=== PATIENT | female | born 1955 | race Caucasian/White ===

== ENCOUNTER 2020-01-24 16:04 | Emergency (ER) | payer MEDICARE, OTHER ==
[~2020-01-24] VITALS: Ht 165.1 cm; Wt 97.9 kg
--- NOTE | 2020-01-24 16:27 | ED Dyspnea ---
General Stated Complaint: ASTHMA History of Present Illness Date Seen by Provider: Jan 24, 2020 Time Seen by Provider: 16:27 Initial Comments 64-year-old female reports that she is "having an asthma attack" patient reports his been going on for a couple weeks. Patient was seen last by her primary care provider and started on a three-day course of steroids along with albuterol. She reports she feels like she can't get any air. She reports that the steroids and help so her primary care provider started her on another dose of steroids couple days ago and is still has not had any improvement. She reports that she "just isn't moving any air" she denies any increased cough, fevers or chills. She has some mild mid sternal chest pain that radiates to her back. Allergies and Home Medications Allergies Coded Allergies: No Known Drug Allergies (Unverified , 01/24/20) Home Medications Azithromycin 250 Mg Tablet, 250 MG PO UD TAKE 2 TABLETS ON DAY ONE THEN TAKE 1 TABLET DAILY FOR FOUR MORE DAYS Prescribed by: SHERMAN CORADO on 01/24/20 7269 Patient Home Medication List Home Medication List Reviewed: Yes Review of Systems Review of Systems Constitutional: No chills, No fever EENTM: see HPI Respiratory: short of breath, wheezing Cardiovascular: No chest pain, No palpitations Gastrointestinal: No diarrhea, No nausea, No vomiting Genitourinary: no symptoms reported Musculoskeletal: no symptoms reported Skin: no symptoms reported Psychiatric/Neurological: No Symptoms Reported Past Habxayg-Ruywrn-Ksjogy Hx Past Med/Social Hx: Reviewed Nursing Past Med/Soc Hx Patient Social History Recent Foreign Travel: No (N) Contact w/Someone Who Travel: No Physical Exam Vital Signs Vital Signs - First Documented 01/24/20 16:17 Temp 36.9 Pulse 99 Resp 20 B/P (MAP) 104/70 (81) Pulse Ox 98 O2 Delivery Room Air Capillary Refill : Height, Weight, BMI Height: '" Weight: lbs. oz. kg; BMI Method: General Appearance: No Apparent Distress Neck: Non Tender, Supple Respiratory: No Accessory Muscle Use, Decreased Breath Sounds (mild diffuse ); No Respiratory Distress, No Wheezing Cardiovascular: Regular Rate, Rhythm, No Edema Gastrointestinal: Non Tender, Soft Extremity: Normal Capillary Refill Neurologic/Psychiatric: Normal Mood/Affect Progress/Results/Core Measures Results/Orders Lab Results Laboratory Tests Test 01/24/20 17:04 Range/Units White Blood Count 15.1 H 4.3-11.0 10^3/uL Red Blood Count 3.76 L 4.35-5.85 10^6/uL Hemoglobin 10.7 L 11.5-16.0 G/DL Hematocrit 33 L 35-52 % Mean Corpuscular Volume 88 80-99 FL Mean Corpuscular Hemoglobin 29 25-34 PG Mean Corpuscular Hemoglobin Concent 32 32-36 G/DL Red Cell Distribution Width 13.8 10.0-14.5 % Platelet Count 452 H 130-400 10^3/uL Mean Platelet Volume 8.4 7.4-10.4 FL Neutrophils (%) (Auto) 91 H 42-75 % Lymphocytes (%) (Auto) 8 L 12-44 % Monocytes (%) (Auto) 2 0-12 % Eosinophils (%) (Auto) 0 0-10 % Basophils (%) (Auto) 0 0-10 % Neutrophils # (Auto) 13.8 H 1.8-7.8 X 10^3 Lymphocytes # (Auto) 1.1 1.0-4.0 X 10^3 Monocytes # (Auto) 0.2 0.0-1.0 X 10^3 Eosinophils # (Auto) 0.0 0.0-0.3 10^3/uL Basophils # (Auto) 0.0 0.0-0.1 10^3/uL Neutrophils % (Manual) 93 % Lymphocytes % (Manual) 7 % Hypersegmented Neutrophils SLIGHT Blood Morphology Comment NORMAL D-Dimer 0.46 0.00-0.49 UG/ML Sodium Level 135 135-145 MMOL/L Potassium Level 5.2 H 3.6-5.0 MMOL/L Chloride Level 103 98-107 MMOL/L Carbon Dioxide Level 18 L 21-32 MMOL/L Anion Gap 14 5-14 MMOL/L Blood Urea Nitrogen 27 H 7-18 MG/DL Creatinine 1.39 H 0.60-1.30 MG/DL Estimat Glomerular Filtration Rate 38 BUN/Creatinine Ratio 19 Glucose Level 298 H 70-105 MG/DL Calcium Level 9.5 8.5-10.1 MG/DL Magnesium Level 1.7 1.6-2.4 MG/DL Troponin I < 0.028 <0.028 NG/ML C-Reactive Protein High Sensitivity 1.01 H 0.00-0.50 MG/DL B-Type Natriuretic Peptide 16.2 <100.0 PG/ML My Orders Orders - SHERMAN CORADO DO Chest Pa/Lat (2 View) (01/24/20 16:33) Basic Metabolic Panel (01/24/20 16:33) BNP (01/24/20 16:33) Cbc With Automated Diff (01/24/20 16:33) Hs C Reactive Protein (01/24/20 16:33) Fibrin Degradation Products (01/24/20 16:33) Magnesium (01/24/20 16:33) Troponin I (01/24/20 16:33) Ed Iv/Invasive Line Start (01/24/20 16:33) Ekg Tracing (01/24/20 16:33) Monitor-Rhythm Ecg Trace Only (01/24/20 16:33) Manual Differential (01/24/20 17:04) Vital Signs/I&O 01/24/20 01/24/20 16:17 18:05 Temp 36.9 36.9 Pulse 99 86 Resp 20 15 B/P (MAP) 104/70 (81) 110/72 (81) Pulse Ox 98 98 O2 Delivery Room Air Progress Progress Note : Time: 17:44 Progress Note Patient with an elevation in white count and what appears be an early pneumonia in the right lower lobe. I will start her on azithromycin. She will be discharged home and should follow with her primary care doctor and [facility]. Patient is stable upon discharge Initial ECG Impression Date: Jan 24, 2020 Initial ECG Impression Time: 17:05 Initial ECG Rate: 84 Initial ECG Rhythm: Normal Sinus Initial ECG Impression: Nonspecific Changes Diagnostic Imaging Diagonstic Imaging: Xray Plain Films/CT/US/NM/MRI: chest Comments [facility]. [place], [place] NAME: ELIZA FRANCO MED REC#: [id number] PT STATUS: REG ER : 1955 PHYSICIAN: SHERMAN CORADO DO ADMIT DATE: 01/24/20/ER Draft Date of Exam:01/24/20 CHEST PA/LAT (2 VIEW) CLINICAL INDICATION: Patient with shortness of air x10 days. No history of cancer. EXAM: Chest x-ray PA and lateral views. COMPARISONS: None. FINDINGS: There are mild curvilinear and amorphous opacities in left lung base which may represent atelectasis, but superimposed infiltrate cannot be completely excluded. There is a suspected minimal right basilar atelectasis. Otherwise, lungs are clear. There is no pleural effusion or pneumothorax. Pulmonary vasculature and cardiac silhouette are within normal limits. Thoracic spine shows small degenerative spurs. IMPRESSION: 1: There are mild airspace opacities in left lung base which may represent atelectasis, but superimposed infiltrate/infectious process cannot be completely excluded. 2: Suspected mild right basilar atelectasis. Reviewed: Reviewed by Me, Reviewed/Discussed Departure Impression Primary Impression: Pneumonia Qualified Codes: J18.9 - Pneumonia, unspecified organism Disposition: HOME, SELF-CARE Condition: Stable Departure-Patient Inst. Referrals: SAMEERA COSBY MD (PCP/Family) Primary Care Physician Patient Instructions: Pneumonia, Adult (DC) Scripts Azithromycin (Azithromycin) 250 Mg Tablet 250 MG PO UD, #6 TAB TAKE 2 TABLETS ON DAY ONE THEN TAKE 1 TABLET DAILY FOR FOUR MORE DAYS Prov: SHERMAN CORADO DO 01/24/20 SHERMAN CORADO DO Jan 24, 2020 16:27
[2020-01-24 17:09] LABS: BASOPHILS % (AUTO) 0 % (0-10); EOSINOPHILS % (AUTO) 0 % (0-10); HEMATOCRIT 33 % (35-52); HEMOGLOBIN 10.7 G/DL (11.5-16.0); LYMPHOCYTES # (AUTO) 1.1 X 10^3 (1.0-4.0); LYMPHOCYTES % (AUTO) 8 % (12-44); MEAN CORPUSCULAR HEMOGLOBIN 29 PG (25-34); MEAN CORPUSCULAR HGB CONC 32 G/DL (32-36); MEAN CORPUSCULAR VOLUME 88 FL (80-99); MEAN PLATELET VOLUME 8.4 FL (7.4-10.4); MONOCYTES # (AUTO) 0.2 X 10^3 (0.0-1.0); MONOCYTES % (AUTO) 2 % (0-12); NEUTROPHILS # (AUTO) 13.8 X 10^3 (1.8-7.8); NEUTROPHILS % (AUTO) 91 % (42-75); PLATELET COUNT 452 10^3/uL (130-400); RED CELL DISTRIBUTION WIDTH 13.8 % (10.0-14.5); WHITE BLOOD COUNT 15.1 10^3/uL (4.3-11.0)
--- NOTE | 2020-01-24 17:13 | Diagnostic Imaging Report ---
CLINICAL INDICATION: Patient with shortness of air x10 days. No history of cancer. EXAM: Chest x-ray PA and lateral views. COMPARISONS: None. FINDINGS: There are mild curvilinear and amorphous opacities in left lung base which may represent atelectasis, but superimposed infiltrate cannot be completely excluded. There is a suspected minimal right basilar atelectasis. Otherwise, lungs are clear. There is no pleural effusion or pneumothorax. Pulmonary vasculature and cardiac silhouette are within normal limits. Thoracic spine shows small degenerative spurs. IMPRESSION: 1: There are mild airspace opacities in left lung base which may represent atelectasis, but superimposed infiltrate/infectious process cannot be completely excluded. 2: Suspected mild right basilar atelectasis. Dictated by: Dictated on workstation # [id number]
[2020-01-24 17:35] LABS: BUN/CREATININE RATIO 19; CALCIUM 9.5 MG/DL (8.5-10.1); CARBON DIOXIDE 18 MMOL/L (21-32); CHLORIDE 103 MMOL/L (98-107); CREATININE SERUM 1.39 MG/DL (0.60-1.30); GFR ESTIMATED 38; GLUCOSE 298 MG/DL (70-105); MAGNESIUM 1.7 MG/DL (1.6-2.4); POTASSIUM 5.2 MMOL/L (3.6-5.0); SODIUM 135 MMOL/L (135-145)
[2020-01-24] MEDS ORDERED: AZIT250T12 PO (17:42)
[2020-01-24 17:56] LABS: HYPERSEGMENTED NEUT SLIGHT; LYMPHOCYTES % (MANUAL) 7 %; NEUTROPHILS % (MANUAL) 93 %
[2020-01-24 17:57] LABS: RBC MORPH NORMAL
[2020-01-24 18:05] VITALS: BP 110/72
== END 2020-01-24 18:05 | disposition home or self-care (01) ==
LOC: ER 16:06
DX: J18.9 Pneumonia, unspecified organism (principal)
CPT/HCPCS: 36415; 71046; 80048; 83735; 83880; 84484; 85007; 85027; 85379; 86141; 93041

== ENCOUNTER 2020-12-29 16:14 | Inpatient (IN) | payer MEDICARE ==
[~2020-12-29] VITALS: Ht 165.1 cm; Wt 95.5 kg
[~2020-12-29 16:14] MED LIST: AZIT250T12 PO
[2020-12-29] MEDS ORDERED: ACETAMINOPHEN 650 MG SUPP (TYLENOL) PR PRN ×2 (18:45→21:45)
[2020-12-29] MEDS ORDERED: ACETAMINOPHEN 325 MG TABLET PO PRN (18:45)
[2020-12-29] MEDS ORDERED: ONDANSETRON 4 MG/5 ML ORAL SOLN (ZOFRAN) 5 ML PO PRN ×2 (18:45→21:45)
--- NOTE | 2020-12-29 19:00 | History & Physical ---
History of Present Illness HPI/Chief Complaint CC: COVID PNA with acute hypoxic respiratory failure with NATHANIEL HPI: This is a 65yoWF clinic patient of Dr Morton who has a h/o asthma without smoking history who presented to [facility] ER with wheezing and dyspnea from Dr Morton office. He called me and after he gave me update I made the decision to have her report to [facility] ER with the intention of admitted her to [facility] as I have done in the past but she was found to be COVID + and unvaccinated and NATHANIEL creatinine 3.4 and severely dehydrated. Due to severity of illness I made the decision to move her to [facility] ICU. She appears to be very dehydrated and was given 2 liters of fluid NS in ER and dosed with 1 gram of IV Cefepime. Peraza catheter will be placed. I put in all meds and ICU orders. Decadron given in ER. Patient has a past medical history of Vpzobnb-Tvykx-Uzwxn disorder with bilateral leg braces worn, diabetes mellitus on insulin, hypothyroidism, chronic insomnia, GERD, neuropathy and hypertension, migraines. Exam Limitations: clinical condition Date Seen 12/29/20 Time Seen by a Provider: 18:30 Attending Physician Dali Kuo Pankaj K MD Referring Physician Date of Admission Home Medications & Allergies Home Medications Reviewed patient Home Medication Reconciliation performed by pharmacy medication reconciliations ophthalmic medical technician and/or nursing. Patients Allergies have been reviewed. Allergies Allergies Coded Allergies No Known Drug Allergies (Unverified01/24/20) Past Mwybxss-Cczmka-Hgpsip Hx Past Med/Social Hx: Reviewed Nursing Past Med/Soc Hx, Reviewed and Corrections made Patient Social History Marrital Status: Employed/Student: unemployed Alcohol Use: Denies Use Smoking Status: Never a Smoker Recent Hopitalizations: No Immunizations Up To Date Tetanus Booster (TDap): Unknown Pediatric: Yes Seasonal Allergies Seasonal Allergies: Yes Past Medical History Surgeries: Gallbladder, Orthopedic, Tubal Ligation Cardiac: Hypertension Neurological: Headaches /Migraines Izcibtz-Xouxn-Mnvvg disorder Tubal Ligation Gastrointestinal: Gastroesophageal Reflux Endocrine: Diabetes, Non-Insulin dep History of Blood Disorders: No Review of Systems Constitutional: see HPI, dizziness, fever, weakness Respiratory: dyspnea on exertion, short of breath, wheezing Psychiatric/Neurological: Other (Confusion) Physical Exam Physical Exam Vital Signs Capillary Refill : Height, Weight, BMI Height: '" Weight: lbs. oz. kg; 35.00 BMI Method: General Appearance: WD/WN, Chronically ill, Moderate Distress, Other (Blair, ashen, profoundly dehydrated) Eyes: Bilateral Eye Normal Inspection, Bilateral Eye PERRL HEENT: PERRL/EOMI, Pharynx Normal, Other (Severe dry mucous membranes) Neck: Full Range of Motion, Normal Inspection, Non Tender, Supple, Carotid Bruit Respiratory: Chest Non Tender, No Respiratory Distress, Accessory Muscle Use, Crackles, Decreased Breath Sounds, Wheezing Cardiovascular: No Edema, No Gallop, No JVD, No Murmur, Normal Peripheral Pulses, Tachycardia Gastrointestinal: Normal Bowel Sounds, No Organomegaly, No Pulsatile Mass, Non Tender, Soft Back: Normal Inspection, No CVA Tenderness, No Vertebral Tenderness Extremity: Normal Capillary Refill, Normal Inspection, Normal Range of Motion, Non Tender, No Calf Tenderness, No Pedal Edema Neurologic/Psychiatric: Alert, Oriented x3, No Motor/Sensory Deficits, Normal Mood/Affect, Depressed Affect, Disoriented Skin: Normal Color, Warm/Dry Lymphatic: No Adenopathy Results Results/Procedures Labs Patient resulted labs reviewed. Assessment/Plan Admission Diagnosis Assessment: COVID-19 pneumonia Acute hypoxic respiratory failure Profound dehydration Acute kidney injury Edawqzw-Lezyv-Bocos disorder Diabetes mellitus insulin-dependent Hypothyroidism eczema Chronic insomnia Severe asthma with frequent hospital stays GERD Neuropathy Hypertension Migraines Plan: Aggressive IV fluid but prevent volume overload Decadron Cefepime Heparin for DVT prophylaxis Profoundly ill Admission Status: Inpatient Order (span 2 midnights) Reason for Inpatient Admission: covid 19 Diagnosis/Problems Diagnosis/Problems (1) SARS pneumonia (2) Acute hypoxemic respiratory failure (3) NATHANIEL (acute kidney injury) (4) Asthma (5) Dehydration (6) Syucrgw-Cpmln-Eomos disease (7) Diabetes (8) Hypertension (9) Migraine (10) Neuropathy (11) Hypothyroidism (12) GERD (gastroesophageal reflux disease) DALI KUO DO Dec 29, 2020 18:59
[2020-12-29] MEDS: NS IV 1000 ML 1,000 ML IV SCH (20:26)
[2020-12-29 20:31] LABS: BASOPHILS % (AUTO) 0 % (0-10); EOSINOPHILS % (AUTO) 0 % (0-10); HEMATOCRIT 28 % (35-52); HEMOGLOBIN 9.1 g/dL (11.5-16.0); LYMPHOCYTES # (AUTO) 0.9 10^3/uL (1.0-4.0); LYMPHOCYTES % (AUTO) 9 % (12-44); MEAN CORPUSCULAR HEMOGLOBIN 29 pg (25-34); MEAN CORPUSCULAR HGB CONC 32 g/dL (32-36); MEAN CORPUSCULAR VOLUME 89 fL (80-99); MEAN PLATELET VOLUME 8.9 fL (9.0-12.2); MONOCYTES # (AUTO) 0.4 10^3/uL (0.0-1.0); MONOCYTES % (AUTO) 4 % (0-12); NEUTROPHILS # (AUTO) 8.7 10^3/uL (1.8-7.8); NEUTROPHILS % (AUTO) 87 % (42-75); PLATELET COUNT 259 10^3/uL (130-400); WHITE BLOOD COUNT 10.1 10^3/uL (4.3-11.0)
[2020-12-29 20:44] LABS: ABG OXYGEN SATURATION 79 % (94-100); ABG PCO2 37 MMHG (35-45); ABG PO2 58 MMHG (79-93); ABG TCO2 17.8 MMOL/L (21.0-31.0)
[2020-12-29 20:45] LABS: ALLENS TEST YES-POS; INSPIRED O2 3L; PATIENT TEMP 39.3; VENTILATOR NO
[2020-12-29 20:47] LABS: ALBUMIN 3.5 GM/DL (3.2-4.5); POTASSIUM 5.1 MMOL/L (3.6-5.0)
[2020-12-29 20:48] LABS: CALCIUM 7.3 MG/DL (8.5-10.1)
[2020-12-29 20:49] LABS: BAND NEUTROPHILS 15 %; BASOPHILS % (MANUAL) 0 %; EOSINOPHILS % (MANUAL) 0 %; LYMPHOCYTES % (MANUAL) 4 %; MONOCYTES % (MANUAL) 3 %; NEUTROPHILS % (MANUAL) 78 %; ROULEAUX SLIGHT
[2020-12-29 20:50] LABS: TOTAL PROTEIN 6.2 GM/DL (6.4-8.2)
[2020-12-29 20:51] LABS: BILIRUBIN,TOTAL 0.2 MG/DL (0.1-1.0)
[2020-12-29 20:53] LABS: CREATININE SERUM 2.87 MG/DL (0.60-1.30)
--- NOTE | 2020-12-29 21:23 | Diagnostic Imaging Report ---
EXAMINATION: Chest radiograph, portable AP view. DATE: 12/29/2020 8:32 PM INDICATION: 65-year-old female, shortness of breath. History of Covid 19 infection and pneumonia. COMPARISON: January 24, 2020. FINDINGS: There is a right internal jugular central venous line with tip at the level of the cavoatrial junction. Stable overall appearance of the cardiomediastinal silhouette. There is no identified pneumothorax. There is no large pleural effusion. There is patchy multifocal airspace consolidation in the right lung. IMPRESSION: 1. Patchy multifocal airspace consolidation in the right lung which may relate to provided history of Covid 19 infection and multifocal pneumonia/pneumonitis although is not specific. 2. Right internal jugular central venous line tip is at the level of the cavoatrial junction. Dictated by: Dictated on workstation # [id number]
[2020-12-29] MEDS ORDERED: CALCIUM CARBONATE 500 MG (TUMS) TAB.CHEW PO PRN (21:45)
[2020-12-29] MEDS ORDERED: guaiFENesin/CODEINE (ROBITUSSIN AC) 10ML UDC PO PRN (21:45)
[2020-12-29] MEDS ORDERED: MELATONIN 3 MG TABLET PO PRN (21:45)
[2020-12-29] MEDS ORDERED: DOCUSATE SODIUM 100 MG (COLACE) CAP PO PRN (21:45)
[2020-12-29] MEDS ORDERED: ONDANSETRON 4 MG/2 ML (SDV) Z0FRAN IVP PRN (21:45)
[2020-12-29] MEDS ORDERED: HYDROcodone/APAP 5 MG/325 MG (LORTAB) TAB PO PRN (21:45)
[2020-12-29] MEDS ORDERED: HYDROmorphone 2 MG/ML VIAL (DILAUDID) IVP PRN (21:45)
[2020-12-29] MEDS ORDERED: LOPERAMIDE 2 MG (IMODIUM) TABLET PO PRN (21:45)
[2020-12-29] MEDS ORDERED: ALPRAZolam 0.25 MG (XANAX) TAB PO PRN (21:45)
[2020-12-29] MEDS ORDERED: ONDANSETRON 4 MG/2 ML (SDV) Z0FRAN IV PRN (21:45)
[2020-12-29] MEDS ORDERED: diphenhydrAMINE 25 MG TAB (BENADRYL) PO PRN (21:45)
[2020-12-29] MEDS: CEFEPIME INJECTION 1,000 MG in WATER (STERILE) FOR INJECTION 10 ML IV SCH (22:35)
--- NOTE | 2020-12-29 23:08 | Tele-ICU Consult ---
History of Present Illness History of Present Illness Date Seen by Provider: Dec 29, 2020 Time Seen by Provider: 23:00 Date of Admission 65 ear old admitted with COVID19 infection and NATHANIEL History of Present Illness 65 year old with h/o asthma, charcoat sammie tooth disease unvaccinated fro COVID -19 admitted witha cute hypoxic repsirtaory failure secondary to COVID-19 infection Allergies and Home Medications Allergies Coded Allergies: No Known Drug Allergies (Unverified , 01/24/20) Home Medications Azithromycin 250 Mg Tablet, 250 MG PO UD TAKE 2 TABLETS ON DAY ONE THEN TAKE 1 TABLET DAILY FOR FOUR MORE DAYS Prescribed by: SHERMAN CORADO on 01/24/20 [id number] Past Medical/Social/Family Hx Patient Social History Marrital Status: Employed/Student: unemployed Tobacco Use?: No Smoking Status: Never a Smoker Smokeless Tobacco Frequency: Never a User Use of E-Cig and/or Vaping dev: No Substance use?: No Alcohol Use?: No Pt stated abuse/neglect: No Immunizations Up To Date Influenza Vaccine Up-to-Date: Yes; Up-to-Date Tetanus Booster (TDap): Unknown Hepatitis A: No Hepatitis B: No Current Status status: No status: No Advance Directives: No Advance Directive Location: Home Communicates: Verbally Primary Language: Amharic Preferred Spoken Language: Amharic Is interpretation needed?: No Implanted or Applied Medical D: None Review of Systems Constitutional: no symptoms reported All Other Systems Reviewed Negative Unless Noted: Yes Sepsis Event Evaluation Sepsis Stage: Severe Sepsis Possible Source: Pulmonary Height, Weight, BMI Height: '" Weight: lbs. oz. kg; 36.24 BMI Method: Exam Exam Patient acknowledged, consented, and participated in this virtual visit which was conducted using real time audio/video Vital Signs Date Time Temp Pulse Resp B/P (MAP) Pulse Ox O2 Delivery O2 Flow Rate FiO2 12/29/20 21:42 37.6 12/29/20 20:47 39.8 12/29/20 19:50 92 Nasal Cannula 3.00 12/29/20 19:50 39.2 100 18 145/78 (100) 92 Nasal Cannula 3.00 Height & Weight Height: '" Weight: lbs. oz. kg; 36.24 BMI Method: General Appearance: WD/WN, Chronically ill, Moderate Distress, Other (Blair, ashen, profoundly dehydrated) HEENT: PERRL/EOMI, Pharynx Normal, Other (Severe dry mucous membranes) Neck: Full Range of Motion, Normal Inspection, Non Tender, Supple, Carotid Bruit Respiratory: Chest Non Tender, No Respiratory Distress, Accessory Muscle Use, Crackles, Decreased Breath Sounds, Wheezing Cardiovascular: No Edema, No Gallop, No JVD, No Murmur, Normal Peripheral Pulses, Tachycardia Capillary Refill: Less Than 3 Seconds Extremity: Normal Capillary Refill, Normal Inspection, Normal Range of Motion, Non Tender, No Calf Tenderness, No Pedal Edema Neurologic/Psychiatric: Alert, Oriented x3, No Motor/Sensory Deficits, Normal Mood/Affect, Depressed Affect, Disoriented Skin: Normal Color, Warm/Dry Lymphatic: No Adenopathy Results Lab Laboratory Tests 12/29/20 20:20 Assessment/Plan Assessment/Plan Acutev Hypoxic respiratory failure secondary to COVID 19 infection Continue high flowoxygen Continue Dexamethasone'Will start on remdesivir DVT prophylaxis Get Inflammatory markers Acute Kidney Injury Hyperkalemia Likely prerenal as patient appears dehydrated there may be some component of ATN Continue Iv fluids at 100 cc/hour Repeat BMP pending D/w bedside solar system designer: Critically Ill Patient Diagnosis/Problems Problems/Diagonsis (1) Dehydration (2) Suspected severe acute respiratory syndrome coronavirus 2 (SARS-CoV-2) infection (3) Dgizrno-Twymh-Arccl disease (4) Asthma (5) NATHANIEL (acute kidney injury) (6) Acute hypoxemic respiratory failure ROBBIE GARNICA MD Dec 29, 2020 23:08
[2020-12-29 23:43] LABS: CHLORIDE 106 MMOL/L (98-107); SODIUM 136 MMOL/L (135-145)
[2020-12-29 23:45] LABS: CALCIUM 7.2 MG/DL (8.5-10.1); GLUCOSE 214 MG/DL (70-105)
[2020-12-29 23:47] LABS: CARBON DIOXIDE 14 MMOL/L (21-32); FIBRIN DEGRADATION PRODUCTS 1.5 UG/ML (0.00-0.49)
[2020-12-29 23:49] LABS: CREATININE SERUM 2.67 MG/DL (0.60-1.30); GFR ESTIMATED 18
[2020-12-29 23:50] LABS: BUN/CREATININE RATIO 16
[2020-12-30 03:21] LABS: ABG BASE EXCESS -9.1 MMOL/L (-2.5-2.5); ABG OXYGEN SATURATION 95 % (94-100); ABG PCO2 33 MMHG (35-45); ABG PO2 74 MMHG (79-93)
[2020-12-30 03:21] LABS: BASOPHILS % (AUTO) 0 % (0-10); EOSINOPHILS % (AUTO) 0 % (0-10); HEMATOCRIT 29 % (35-52); HEMOGLOBIN 9.2 g/dL (11.5-16.0); LYMPHOCYTES % (AUTO) 9 % (12-44); MEAN CORPUSCULAR HEMOGLOBIN 29 pg (25-34); MEAN CORPUSCULAR HGB CONC 32 g/dL (32-36); MEAN CORPUSCULAR VOLUME 90 fL (80-99); MEAN PLATELET VOLUME 8.7 fL (9.0-12.2); MONOCYTES # (AUTO) 0.5 10^3/uL (0.0-1.0); MONOCYTES % (AUTO) 4 % (0-12); NEUTROPHILS % (AUTO) 86 % (42-75); PLATELET COUNT 252 10^3/uL (130-400); WHITE BLOOD COUNT 11.7 10^3/uL (4.3-11.0)
[2020-12-30 03:24] LABS: ABG PH 7.31 (7.37-7.43)
[2020-12-30 03:25] LABS: ALLENS TEST YES-POS; INSPIRED O2 3L; PATIENT TEMP 36.9; VENTILATOR NO
[2020-12-30 03:36] LABS: POTASSIUM 4.9 MMOL/L (3.6-5.0)
[2020-12-30 03:37] LABS: CALCIUM 7.4 MG/DL (8.5-10.1)
[2020-12-30 03:42] LABS: CREATININE SERUM 2.49 MG/DL (0.60-1.30); PHOSPHORUS 4.1 MG/DL (2.3-4.7)
[2020-12-30 03:45] LABS: MAGNESIUM 1.8 MG/DL (1.6-2.4)
[2020-12-30] MEDS ORDERED: PANTOPRAZOLE 40 MG (PROTONIX) TAB PO ONE (04:40)
--- NOTE | 2020-12-30 05:23 | Progress Note - Hospitalist ---
Subjective HPI/CC On Admission Date Seen by Provider: Dec 30, 2020 Time Seen by Provider: 10:00 CC: COVID PNA with acute hypoxic respiratory failure with NATHANIEL HPI: This is a 65yoWF clinic patient of Dr Morton who has a h/o asthma without smoking history who presented to [facility] with wheezing and dyspnea from Dr Morton office. He called me and after he gave me update I made the decision to have her report to [facility] with the intention of admitted her to [facility] as I have done in the past but she was found to be COVID + and unvaccinated and NATHANIEL creatinine 3.4 and severely dehydrated. Due to severity of illness I made the decision to move her to [facility] ICU. She appears to be very dehydrated and was given 2 liters of fluid NS in ER and dosed with 1 gram of IV Cefepime. Peraza catheter will be placed. I put in all meds and ICU orders. Decadron given in ER. Patient has a past medical history of Ibhnhtl-Mzyre-Preuk disorder with bilateral leg braces worn, diabetes mellitus on insulin, hypothyroidism, chronic insomnia, GERD, neuropathy and hypertension, migraines. Subjective/Events-last exam Pt doing pretty well On 3 liters of oxygen Zofran helpful for nausea Home meds were restarted BP okay Output good IS maintained Moving to fourth floor Review of Systems General: Fatigue, Malaise Gastrointestinal: Nausea Focused Exam Lactate Level 12/29/20 20:20: Lactic Acid Level 1.23 Objective Exam Vital Signs Vital Signs Date Time Temp Pulse Resp B/P (MAP) Pulse Ox O2 Delivery O2 Flow Rate FiO2 12/30/20 21:18 Nasal Cannula 3.00 12/30/20 19:47 35.8 81 20 108/59 (75) 97 Capillary Refill : Less Than 3 Seconds General Appearance: No Apparent Distress, WD/WN, Chronically ill Respiratory: No Accessory Muscle Use, No Respiratory Distress, Decreased Breath Sounds Cardiovascular: Regular Rate, Rhythm Neurologic/Psychiatric: Alert, Oriented x3, Depressed Affect Results/Procedures Lab Laboratory Tests 12/29/20 23:25 12/30/20 03:05 Patient resulted labs reviewed. Assessment/Plan Assessment and Plan Assess & Plan/Chief Complaint Assessment: COVID-19 pneumonia Acute hypoxic respiratory failure Profound dehydration Acute kidney injury Xgrasfm-Flomt-Zywpv disorder Diabetes mellitus insulin-dependent Hypothyroidism eczema Chronic insomnia Severe asthma with frequent hospital stays GERD Neuropathy Hypertension Migraines Plan: Aggressive IV fluid but prevent volume overload Decadron Cefepime Heparin for DVT prophylaxis Profoundly ill 12/30/2020: Much improved Moved to fourth floor Continue IV fluids Critical Care Critically Ill Patient Diagnosis/Problems Diagnosis/Problems (1) SARS pneumonia (2) Acute hypoxemic respiratory failure (3) NATHANIEL (acute kidney injury) (4) Asthma (5) Dehydration (6) Bhzwqfg-Gpmkh-Fkqvm disease (7) Diabetes (8) Hypertension (9) Migraine (10) Neuropathy (11) Hypothyroidism (12) GERD (gastroesophageal reflux disease) JEOVANY KUO DO Dec 30, 2020 05:23
[2020-12-30] MEDS: inSUlin ASPART (NovoLOG) 1 UNIT/0.01 ML (CHARGE PER UNIT) SC SCH ×4 (05:43→20:26)
[2020-12-30] MEDS: NS IV 1000 ML 1,000 ML IV SCH ×2 (05:43→15:56)
[2020-12-30] MEDS ORDERED: MAGNESIUM 1 GM/100 ML IVPB 100 ML IV SCH ×2 (06:00)
[2020-12-30] MEDS ORDERED: KCL 20 MEQ TAB (K-DUR) PO SCH ×2 (06:00)
[2020-12-30] MEDS ORDERED: POTASSIUM CL 10MEQ/50ML IVPB 50 ML IV SCH ×2 (06:00)
[2020-12-30] MEDS ORDERED: PANTOPRAZOLE 40 MG (PROTONIX) TAB PO SCH (07:00)
--- NOTE | 2020-12-30 07:13 | Diagnostic Imaging Report ---
Indication: Dyspnea. COVID positive. Comparison with 12/29/2020. FINDINGS: Patchy perihilar infiltrate within the right lung is again demonstrated unchanged. Left lung remains well-aerated and clear. Heart is not enlarged. PICC line on the right is stable. No pneumothorax or pleural effusion. IMPRESSION: Persistent right perihilar infiltrate. Report was faxed to Juan/RN Infection Control by alyssa at 7:12am. Dictated by: Dictated on workstation # [id number]
[2020-12-30] MEDS ORDERED: REMDESIVIR INJ 200 MG in NS (IVPB) 210 ML IV ONE (08:00)
[2020-12-30 08:41] VITALS: BP 133/64
[2020-12-30] MEDS: AZITHROMYCIN INJECTION 500 MG in NS (IVPB) 250 ML IV SCH (08:41)
[2020-12-30] MEDS: CEFEPIME INJECTION 1,000 MG in WATER (STERILE) FOR INJECTION 10 ML IV SCH ×2 (08:41→21:02)
[2020-12-30] MEDS: SENNA W/DOCUSATE (SENOKOT S) TABLET PO SCH ×2 (08:42→21:05)
[2020-12-30] MEDS ORDERED: RT-ALBUTEROL HFA 8.5 GM INHALER IH PRN (09:00)
--- NOTE | 2020-12-30 09:46 | Tele-ICU Progress Note ---
Subjective Date Seen by a Provider: Dec 30, 2020 Time Seen by a Provider: 09:45 Sepsis Event Evaluation Height, Weight, BMI Height: '" Weight: lbs. oz. kg; 36.24 BMI Method: Focused Exam Lactate Level 12/29/20 20:20: Lactic Acid Level 1.23 Exam Exam Patient acknowledged, consented, and participated in this virtual visit which was conducted using real time audio/video Vital Signs Date Time Temp Pulse Resp B/P (MAP) Pulse Ox O2 Delivery O2 Flow Rate FiO2 12/30/20 09:00 86 25 109/71 (84) 91 Nasal Cannula 3.00 12/30/20 08:41 84 96 12/30/20 08:00 83 20 128/74 (92) 89 Nasal Cannula 3.00 12/30/20 07:25 37.0 12/30/20 07:00 82 16 138/65 (89) 94 Nasal Cannula 3.00 12/30/20 06:54 84 12/30/20 06:00 82 19 133/64 (87) 96 Nasal Cannula 3.00 12/30/20 05:00 80 18 115/61 (79) 94 Nasal Cannula 3.00 12/30/20 04:00 80 23 127/66 (86) 93 Nasal Cannula 3.00 12/30/20 03:00 97 Nasal Cannula 3.00 12/30/20 03:00 78 22 138/63 (88) 97 Nasal Cannula 3.00 12/30/20 02:00 79 17 103/55 (71) 91 Nasal Cannula 3.00 12/30/20 01:07 36.1 Nasal Cannula 3.00 12/30/20 01:00 81 23 120/62 (81) 96 Nasal Cannula 3.00 12/30/20 01:00 81 12/30/20 00:00 81 17 102/51 (68) 94 Nasal Cannula 3.00 12/29/20 23:51 92 Nasal Cannula 3.00 12/29/20 23:51 37.4 Nasal Cannula 3.00 12/29/20 23:00 86 21 126/53 (77) 93 Nasal Cannula 3.00 12/29/20 22:00 92 23 122/57 (78) 94 Nasal Cannula 3.00 12/29/20 21:42 37.6 12/29/20 21:00 96 12 132/57 (82) 92 Nasal Cannula 3.00 12/29/20 20:47 39.8 12/29/20 20:45 98 13 109/57 (74) 93 Nasal Cannula 3.00 12/29/20 20:37 98 8 141/64 (89) 92 Nasal Cannula 3.00 12/29/20 20:15 98 15 108/54 (72) 92 Nasal Cannula 3.00 12/29/20 20:03 103 12/29/20 19:50 92 Nasal Cannula 3.00 12/29/20 19:50 39.2 100 18 145/78 (100) 92 Nasal Cannula 3.00 I & O 12/30/20 07:00 Intake Total 1360 ml Output Total 1315 ml Balance 45 ml Height & Weight Height: '" Weight: lbs. oz. kg; 36.24 BMI Method: General Appearance: WD/WN, Chronically ill, Moderate Distress, Other (Blair, ashen, profoundly dehydrated) HEENT: PERRL/EOMI, Pharynx Normal, Other (Severe dry mucous membranes) Neck: Full Range of Motion, Normal Inspection, Non Tender, Supple, Carotid Bruit Respiratory: Chest Non Tender, No Respiratory Distress, Accessory Muscle Use, Crackles, Decreased Breath Sounds, Wheezing Cardiovascular: No Edema, No Gallop, No JVD, No Murmur, Normal Peripheral Pulses, Tachycardia Capillary Refill: Less Than 3 Seconds Extremity: Normal Capillary Refill, Normal Inspection, Normal Range of Motion, Non Tender, No Calf Tenderness, No Pedal Edema Neurologic/Psychiatric: Alert, Oriented x3, No Motor/Sensory Deficits, Normal Mood/Affect, Depressed Affect, Disoriented Skin: Normal Color, Warm/Dry Lymphatic: No Adenopathy Results Lab Laboratory Tests 12/29/20 20:20 12/29/20 23:25 12/30/20 03:05 Assessment/Plan Assessment/Plan (Tele-ICU Physician , Progress Note ) Available chart/ vitals / labs / Images reviewed Video assessment done using teleICU camera, rest of exam as per RN Discussed with RN Events overnight : Afebrile now I/O = Drips: na 100 Pressors: , hemodynamically stable EXAM PER RN Consultants: Hospital course: 12/29- 65 year old with h/o asthma, charcoat sammie tooth disease unvaccinated fro COVID -19 admitted with repsirtaory failure secondary to COVID-19 infection 12/30 -3l 02 A/P Acute Hypoxic respiratory failure secondary to COVID 19 infection - o2 COVID PNA -Dexamethasone -remdesivir - d dimer low 12/29 Suspected bact PNA - order sputum cx , cont abx Acute Kidney Injury - prerenal - cont hydration , follow - Hyperkalemia resolved Lines : RIJ 12/29 , (Central Line Necessity Reviewed) Peraza: 12/29 OG: Nutrition: po Analgesia: na Anxiety/ delirium na VTE Prophylaxis: [id number] q8 Stress Ulcer Prophylaxis: ppi Glycemic Control: iss Plans in collaboration with bedside consultants and IM MDs. Discussed with RN to reach out if any questions or concerns A total of 20 minutes of critical care time was devoted to this patient today, required to treat and/or prevent further deterioration of critical care condition ( as above) . NEO MARQUES MD Dec 30, 2020 09:46
[2020-12-30] MEDS: ONDANSETRON 4 MG/2 ML (SDV) Z0FRAN IV PRN (10:04)
[2020-12-30] MEDS ORDERED: MELO15TA39 PO (11:12)
[2020-12-30] MEDS ORDERED: AMIT100T2 PO (11:12)
[2020-12-30] MEDS ORDERED: LISI20TA26 PO (11:12)
[2020-12-30] MEDS ORDERED: GLBR5T PO (11:12)
[2020-12-30] MEDS ORDERED: OMEP20TA7 PO (11:12)
[2020-12-30] MEDS ORDERED: MAGN400T39 PO (11:12)
[2020-12-30] MEDS ORDERED: METF-399 PO (11:12)
[2020-12-30] MEDS ORDERED: FLUT9.9S NSEACH (11:12)
[2020-12-30] MEDS ORDERED: FURO40TA4 PO (11:12)
[2020-12-30] MEDS ORDERED: INSU100I29 SC (11:12)
[2020-12-30] MEDS ORDERED: HYDR-3820 PO (11:12)
[2020-12-30] MEDS ORDERED: ATOR10TA66 PO (11:12)
[2020-12-30] MEDS ORDERED: ZOLP5TAB7 PO (11:12)
[2020-12-30] MEDS ORDERED: LORA10TA7 PO (11:12)
[2020-12-30] MEDS ORDERED: ALBU2.5V4 NEB (11:12)
[2020-12-30] MEDS ORDERED: CYCL10TA9 PO ×2 (11:12→11:48)
[2020-12-30] MEDS ORDERED: CANA100T PO (11:12)
[2020-12-30] MEDS ORDERED: AMIT25TA9 PO (11:12)
[2020-12-30] MEDS ORDERED: MONT10TA32 PO (11:12)
[2020-12-30] MEDS ORDERED: GABA300C PO (11:12)
[2020-12-30] MEDS: RT-ALBUTEROL HFA 8.5 GM INHALER IH SCH ×3 (11:21→21:05)
[2020-12-30] MEDS ORDERED: LORATADINE (CLARITIN) 10 MG TAB PO PRN (12:45)
[2020-12-30] MEDS ORDERED: FLUTICASONE NASAL SPRAY (FLONASE) 16 GM BTL NS PRN (13:15)
[2020-12-30] MEDS: CYCLOBENZAPRINE 10 MG (FLEXERIL) TAB PO PRN (13:37)
[2020-12-30] MEDS: glyBURIDE 5 MG (MICRONASE) TAB PO SCH (15:57)
[2020-12-30 16:00] VITALS: BP 112/53
[2020-12-30 19:47] VITALS: BP 108/59
[2020-12-30] MEDS: ATORVASTATIN 10 MG TABLET PO SCH (21:03)
[2020-12-30] MEDS: PANTOPRAZOLE 20 MG TABLET (PROTONIX) PO SCH (21:03)
[2020-12-30] MEDS: CYCLOBENZAPRINE 10 MG (FLEXERIL) TAB PO SCH (21:03)
[2020-12-30] MEDS: AMITRIPTYLINE 50 MG (ELAVIL) TAB PO SCH (21:03)
[2020-12-30] MEDS: GABAPENTIN 300 MG (NEURONTIN) CAP PO SCH (21:03)
[2020-12-30] MEDS: ZOLPIDEM 5 MG (AMBIEN) TAB PO SCH (21:03)
[2020-12-31] VITALS (7 sets, daily range): BP systolic 112–146; BP diastolic 65–77
[2020-12-31] MEDS: NS IV 1000 ML 1,000 ML IV SCH ×3 (00:49→21:28)
[2020-12-31] MEDS: RT-ALBUTEROL HFA 8.5 GM INHALER IH SCH ×4 (00:52→21:12)
--- NOTE | 2020-12-31 05:31 | Progress Note - Hospitalist ---
Subjective HPI/CC On Admission Date Seen by Provider: Dec 31, 2020 Time Seen by Provider: 11:00 CC: COVID PNA with acute hypoxic respiratory failure with NATHANIEL HPI: This is a 65yoWF clinic patient of Dr Morton who has a h/o asthma without smoking history who [place] [facility] [place] with wheezing and dyspnea from Dr Morton office. He called me and after he gave me update I made the decision to have her report [place] [facility] [place] the intention of admitted [place] [facility] [place] I have done in the past but she was found to be COVID + and unvaccinated and NATHANIEL creatinine 3.4 and severely dehydrated. Due to severity of illness I made the decision to move her to [facility] ICU. She appears to be very dehydrated and was given 2 liters of fluid NS in ER and dosed with 1 gram of IV Cefepime. Peraza catheter will be placed. I put in all meds and ICU orders. Decadron given in ER. Patient has a past medical history of Qvqnkax-Rivyl-Rbqin disorder with bilateral leg braces worn, diabetes mellitus on insulin, hypothyroidism, chronic insomnia, GERD, neuropathy and hypertension, migraines. Subjective/Events-last exam Pt doing a lot better Nausea a bit today Zofran given Remains on two liters of O2 Remdesivir ordered Creatinine now normal at 1.3 Review of Systems General: Fatigue, Malaise Focused Exam Lactate Level 12/29/20 20:20: Lactic Acid Level 1.23 Objective Exam Vital Signs Vital Signs Date Time Temp Pulse Resp B/P (MAP) Pulse Ox O2 Delivery O2 Flow Rate FiO2 12/31/20 20:02 37.1 81 20 143/73 (96) 97 Nasal Cannula 2.00 Capillary Refill : Less Than 3 Seconds General Appearance: No Apparent Distress, WD/WN, Chronically ill Respiratory: No Accessory Muscle Use, No Respiratory Distress, Decreased Breath Sounds Cardiovascular: Regular Rate, Rhythm Neurologic/Psychiatric: Alert, Oriented x3 Results/Procedures Lab Laboratory Tests 12/31/20 05:30 Patient resulted labs reviewed. Assessment/Plan Assessment and Plan Assess & Plan/Chief Complaint Assessment: COVID-19 pneumonia Acute hypoxic respiratory failure Profound dehydration Acute kidney injury Xlqyjec-Iediz-Uncjd disorder Diabetes mellitus insulin-dependent Hypothyroidism eczema Chronic insomnia Severe asthma with frequent hospital stays GERD Neuropathy Hypertension Migraines Plan: Aggressive IV fluid but prevent volume overload Decadron Cefepime Heparin for DVT prophylaxis Profoundly ill 12/30/2020: Much improved Moved to fourth floor Continue IV fluids 12/31/2020: Monitor closely Fall risk Nausea treatment Critical Care Critically Ill Patient Diagnosis/Problems Diagnosis/Problems (1) SARS pneumonia (2) Acute hypoxemic respiratory failure (3) NATHANIEL (acute kidney injury) (4) Asthma (5) Dehydration (6) Jdfzpru-Ddqce-Cubcv disease (7) Diabetes (8) Hypertension (9) Migraine (10) Neuropathy (11) Hypothyroidism (12) GERD (gastroesophageal reflux disease) JEOVANY KUO DO Dec 31, 2020 05:31
[2020-12-31] MEDS: glyBURIDE 5 MG (MICRONASE) TAB PO SCH ×2 (05:34→16:36)
[2020-12-31 05:40] LABS: BASOPHILS % (AUTO) 0 % (0-10); EOSINOPHILS % (AUTO) 0 % (0-10); HEMATOCRIT 27 % (35-52); HEMOGLOBIN 8.8 g/dL (11.5-16.0); LYMPHOCYTES # (AUTO) 1.1 10^3/uL (1.0-4.0); LYMPHOCYTES % (AUTO) 10 % (12-44); MEAN CORPUSCULAR HEMOGLOBIN 29 pg (25-34); MEAN CORPUSCULAR HGB CONC 33 g/dL (32-36); MEAN CORPUSCULAR VOLUME 88 fL (80-99); MEAN PLATELET VOLUME 8.9 fL (9.0-12.2); MONOCYTES # (AUTO) 0.3 10^3/uL (0.0-1.0); MONOCYTES % (AUTO) 3 % (0-12); NEUTROPHILS # (AUTO) 9.4 10^3/uL (1.8-7.8); NEUTROPHILS % (AUTO) 86 % (42-75); PLATELET COUNT 234 10^3/uL (130-400); WHITE BLOOD COUNT 10.9 10^3/uL (4.3-11.0)
[2020-12-31 05:49] LABS: ALBUMIN 3.1 GM/DL (3.2-4.5); POTASSIUM 4.8 MMOL/L (3.6-5.0)
[2020-12-31 05:50] LABS: CALCIUM 7.6 MG/DL (8.5-10.1)
[2020-12-31 05:51] LABS: TOTAL PROTEIN 5.6 GM/DL (6.4-8.2)
[2020-12-31 05:53] LABS: BILIRUBIN,TOTAL 0.1 MG/DL (0.1-1.0)
[2020-12-31 05:55] LABS: CREATININE SERUM 1.31 MG/DL (0.60-1.30)
[2020-12-31] MEDS: inSUlin ASPART (NovoLOG) 1 UNIT/0.01 ML (CHARGE PER UNIT) SC SCH ×4 (05:58→21:28)
--- NOTE | 2020-12-31 07:45 | Diagnostic Imaging Report ---
INDICATION: Dyspnea. COMPARISON: 12/30/2020 FINDINGS: The heart size is normal. There is a patchy right upper lobe infiltrate. There is no pleural effusion or pneumothorax. The mediastinum is unremarkable. Right internal jugular central venous catheter has its tip at the cavoatrial junction. IMPRESSION: Slightly increasing right upper lobe infiltrate suspect for pneumonia. Dictated by: Dictated on workstation # [id number]
[2020-12-31] MEDS ORDERED: AMITRIPTYLINE 25 MG (ELAVIL) TAB PO SCH (09:00)
[2020-12-31] MEDS: MAGNESIUM OXIDE (MAG-OX)400 MG TAB PO SCH (09:01)
[2020-12-31] MEDS: AZITHROMYCIN INJECTION 500 MG in NS (IVPB) 250 ML IV SCH (09:01)
[2020-12-31] MEDS: GABAPENTIN 300 MG (NEURONTIN) CAP PO SCH ×2 (09:01→21:26)
[2020-12-31] MEDS: CEFEPIME INJECTION 1,000 MG in WATER (STERILE) FOR INJECTION 10 ML IV SCH ×2 (09:01→21:25)
[2020-12-31] MEDS: MONTELUKAST 10 MG (SINGULAIR) TAB PO SCH (09:01)
[2020-12-31] MEDS: REMDESIVIR INJ 100 MG in NS (IVPB) 230 ML IV SCH (09:02)
[2020-12-31] MEDS: SENNA W/DOCUSATE (SENOKOT S) TABLET PO SCH ×2 (09:02→21:26)
[2020-12-31] MEDS: CYCLOBENZAPRINE 10 MG (FLEXERIL) TAB PO SCH ×2 (09:02→21:26)
[2020-12-31] MEDS: ONDANSETRON 4 MG/2 ML (SDV) Z0FRAN IV PRN ×2 (09:21→22:06)
[2020-12-31] MEDS: ZOLPIDEM 5 MG (AMBIEN) TAB PO SCH (21:26)
[2020-12-31] MEDS: AMITRIPTYLINE 50 MG (ELAVIL) TAB PO SCH (21:26)
[2020-12-31] MEDS: ATORVASTATIN 10 MG TABLET PO SCH (21:26)
[2020-12-31] MEDS: PANTOPRAZOLE 20 MG TABLET (PROTONIX) PO SCH (21:26)
[2021-01-01] MEDS: RT-ALBUTEROL HFA 8.5 GM INHALER IH SCH ×4 (02:46→21:25)
[2021-01-01] MEDS: CEFEPIME INJECTION 1,000 MG in WATER (STERILE) FOR INJECTION 10 ML IV SCH ×3 (04:34→21:10)
[2021-01-01 04:51] LABS: BASOPHILS % (AUTO) 0 % (0-10); EOSINOPHILS % (AUTO) 0 % (0-10); HEMATOCRIT 25 % (35-52); HEMOGLOBIN 8.1 g/dL (11.5-16.0); LYMPHOCYTES # (AUTO) 0.7 10^3/uL (1.0-4.0); LYMPHOCYTES % (AUTO) 8 % (12-44); MEAN CORPUSCULAR HEMOGLOBIN 29 pg (25-34); MEAN CORPUSCULAR HGB CONC 32 g/dL (32-36); MEAN CORPUSCULAR VOLUME 89 fL (80-99); MONOCYTES # (AUTO) 0.3 10^3/uL (0.0-1.0); MONOCYTES % (AUTO) 4 % (0-12); NEUTROPHILS % (AUTO) 87 % (42-75); PLATELET COUNT 260 10^3/uL (130-400); WHITE BLOOD COUNT 9.1 10^3/uL (4.3-11.0)
[2021-01-01 05:04] LABS: POTASSIUM 4.8 MMOL/L (3.6-5.0)
[2021-01-01 05:05] LABS: CALCIUM 8.1 MG/DL (8.5-10.1)
[2021-01-01 05:06] LABS: TOTAL PROTEIN 5.6 GM/DL (6.4-8.2)
[2021-01-01] MEDS: inSUlin ASPART (NovoLOG) 1 UNIT/0.01 ML (CHARGE PER UNIT) SC SCH ×4 (05:07→21:11)
[2021-01-01 05:08] LABS: BILIRUBIN,TOTAL 0.1 MG/DL (0.1-1.0)
[2021-01-01 05:10] LABS: CREATININE SERUM 1.16 MG/DL (0.60-1.30)
[2021-01-01] MEDS: glyBURIDE 5 MG (MICRONASE) TAB PO SCH ×2 (06:16→16:22)
[2021-01-01 08:00] VITALS: BP 155/63
[2021-01-01] MEDS: MAGNESIUM OXIDE (MAG-OX)400 MG TAB PO SCH (08:06)
[2021-01-01] MEDS: GABAPENTIN 300 MG (NEURONTIN) CAP PO SCH ×2 (08:06→21:09)
[2021-01-01] MEDS: CYCLOBENZAPRINE 10 MG (FLEXERIL) TAB PO SCH ×2 (08:06→21:09)
[2021-01-01] MEDS: MONTELUKAST 10 MG (SINGULAIR) TAB PO SCH (08:07)
[2021-01-01] MEDS: REMDESIVIR INJ 100 MG in NS (IVPB) 230 ML IV SCH (08:08)
[2021-01-01] MEDS: SENNA W/DOCUSATE (SENOKOT S) TABLET PO SCH ×2 (08:12→21:10)
[2021-01-01] MEDS: AZITHROMYCIN INJECTION 500 MG in NS (IVPB) 250 ML IV SCH (08:47)
--- NOTE | 2021-01-01 14:48 | Physical Therapy Evaluation ---
PT Evaluation-General Medical Diagnosis Admission Date Dec 29, 2020 at 19:50 Medical Diagnosis: Covid pneumonia/NATHANIEL Onset Date: Dec 29, 2020 Therapy Diagnosis Therapy Diagnosis: debility/weakness Precautions Precautions/Isolations: Airborne Isolation, Contact Isolation, Droplet Isolation Referral Physician: Mega Reason for Referral: Evaluation/Treatment Medical History Pertinent Medical History: DM, HTN, Neuropathy Additional Medical History asthma/Charcot Nani Tooth (bilateral AFO's) Reviewed History: Yes Social History Home: Single Level Current Living Status: Spouse Entry Into Home: Level Entry Prior Prior Level of Function SCALE: Activities may be completed with or without assistive devices. 1-Fuclqvrrdg-lcclloj completes the activity by him/herself with no assistance from a helper. 5-Set-up or Clean-up Assistance-helper sets up or cleans up; patient completes activity. [place] assists only prior to or following the activity. 4-Supervision or Touching Assistance-helper provides verbal cues and/or touching/steadying and/or contact guard assistance as patient completes activity. Assistance may be provided throughout the activity or intermittently. 3-Partial/Moderate Assistance-helper does LESS THAN HALF the effort. [place] lifts, holds or supports trunk or limbs, but provides less than half the effort. 2-Substantial/Maximal Assistance-helper does MORE THAN HALF the effort. [place] lifts or holds trunk or limbs and provides more than half the effort. 4-Eboekxtlr-ukmzuo does ALL the effort. Patient does none of the effort to complete the activity. Or, the assistance of 2 or more helpers is required for the patient to complete the activity. If activity was not attempted, code reason: 7-Patient Refused. 9-Not Applicable-not attempted and the patient did not perform the activity before the current illness, exacerbation or injury. 10-Not Attempted due to Environmental Limitations-(lack of equipment, weather restraints, etc.). 88-Not Attempted due to Medical Conditions or Safety Concerns. Bed Mobility: 6 Transfers (B,C,W/C): 6 Gait: 6 Stairs: 6 Indoor Mobility (Ambulation): Independent Stairs: Independent Prior Devices Use: Walker independent with donning bilateral AFO's PT Evaluation-Current Subjective Patient agrees to PT/OT cotreat for energy/pulmonary conservation. Objective Patient Orientation: Normal For Age Attachments: Oxygen, Peraza Catheter ROM/Strength ROM Lower Extremities bilateral LE WFL Strength Lower Extremities 0/5 bilateral ankles (AFO's); 3+/5 grossly bilateral LE Integumentary/Posture Bowel Incontinence: No Bladder Incontinence: Peraza Cath Posture WFL Neuromuscular (Tone, Coordination, Reflexes) grossly intact Sensory Vision: Functional Hearing: Functional Transfers Roll Left to Right (QC): 6 Sit to Lying (QC): 6 Lying to Sitting/Side of Bed(Q: 6 Sit to Stand (QC): 4 Chair/Jsv-od-Sfbkw Xfer(QC): 4 Gait Does the Patient Walk?: Yes Mode of Locomotion: Walk Anticipated Mode of Locomotion: Walk Walk 10 feet (QC): 4 Walk 50 ft with 2 Turns(QC): 4 Walk 150 ft (QC): 88 Distance: 50' Gait Assistive Device: FWW Comments/Gait Description functional gait sequence (patient dons bilateral stockings, AFO's and shoes with set up only) Balance Sitting Static: Normal Sitting Dynamic: Normal Standing Static: Normal Standing Dynamic: Normal Assessment/Needs 65 y.o. female, will be seen short term by skilled PT to address functional mobility to improve pulmonary function. Rehab Potential: Fair PT Care Home Goals Care Home Goals PT Care Home Goals Time Frame: Jan 08, 2021 Roll Left & Right (QC): 6 Sit to Lying (QC): 6 Lying-Sitting on Side/Bed(QC): 6 Sit to Stand (QC): 6 Chair/Erc-co-Pihcw Xfer(QC): 6 Toilet Transfer (QC): 6 Does the Patient Walk: Yes Walk 10 feet (QC): 6 Walk 50ft with 2 Turns (QC): 6 PT Plan Problem List Problem List: Activity Tolerance Treatment/Plan Treatment Plan: Continue Plan of Care Treatment Plan: Education, Functional Activity Osman, Functional Strength, Gait, Safety, Therapeutic Exercise Treatment Duration: Jan 08, 2021 Frequency: 5 times per week Estimated Hrs Per Day: .25 hour per day Patient and/or Family Agrees t: Yes Discharge Recommendations Therapy Discharge Recommendati: Home & Family Time/GCodes Time In: 1400 Time Out: 1420 Total Billed Treatment Time: 20 Total Billed Treatment 1 visit EVModC 20 min HOLLAND OROZCO PT Jan 01, 2021 14:48
--- NOTE | 2021-01-01 15:47 | Occupational Therapy Eval ---
OT Evaluation-General/PLF Medical Diagnosis Admission Date Dec 29, 2020 at 19:50 Medical Diagnosis: Covid pneumonia/NATHANIEL Onset Date: Dec 29, 2020 Therapy Diagnosis Therapy Diagnosis: Weakness Precautions Precautions/Isolations: Airborne Isolation, Contact Isolation, Droplet Isolation Weight Bear Status Weight Bearing Restriction: Weight Bearing/Tolerated Referral Physician: Mega Henley Reason: Activity Tolerance, Self Care, Evaluation/Treatment, Strengthening/ROM Medical History Pertinent Medical History: DM, HTN, Neuropathy Additional Medical History Cauda Equine Reviewed History: Yes Social History Home: Single Level Current Living Status: Spouse Entry Into Home: Level Entry ADL-Prior Level of Function SCALE: Activities may be completed with or without assistive devices. 8-Lqhyaahkih-itshzsn completes the activity by him/herself with no assistance from a helper. 5-Set-up or Clean-up Assistance-helper sets up or cleans up; patient completes activity. Winder assists only prior to or following the activity. 4-Supervision or Touching Assistance-helper provides verbal cues and/or touching/steadying and/or contact guard assistance as patient completes activity. Assistance may be provided throughout the activity or intermittently. 3-Partial/Moderate Assistance-helper does LESS THAN HALF the effort. Winder lifts, holds or supports trunk or limbs, but provides less than half the effort. 2-Substantial/Maximal Assistance-helper does MORE THAN HALF the effort. Winder lifts or holds trunk or limbs and provides more than half the effort. 5-Tethknilt-ejemvu does ALL the effort. Patient does none of the effort to complete the activity. Or, the assistance of 2 or more helpers is required for the patient to complete the activity. If activity was not attempted, code reason: 7-Patient Refused. 9-Not Applicable-not attempted and the patient did not perform the activity before the current illness, exacerbation or injury. 10-Not Attempted due to Environmental Limitations-(lack of equipment, weather restraints, etc.). 88-Not Attempted due to Medical Conditions or Safety Concerns. ADL PLOF Comments Pt. wears bilateral LE braces but is fully independent with daily skills. She wears oxygen as needed at home, and uses a walker all the time. Self Care: Independent Functional Cognition: Independent DME/Equipment: Bath Chair, Tub/Shower DME/Equipment Comments Walker OT Current Status Subjective No pain reported. Pt. reports significant fatigue. Mental Status/Objective Patient Orientation: Person, Place, Time, Situation Attachments: Oxygen Current Hand Dominance: Right Upper Extremity ROM WFL ADL-Treatment Eating (QC): 6 On/Off Footwear (QC): 5 (Set up to don hose, shoes, and foot braces.) Other Treatments Pt. seen for co-treatment due to significant fatigue and SOA due to COVID diagnosis. PT focused on mobility while OT assessed ADL skills. Pt. transfered supine-sit with SBA. Donned shoes, hose, and braces with SBA. Stood with SBA with walker and transferred to chair. OT washed hair with shampoo cap. Pt. able to comb hair with increased time for recovery after completing task. Pt. educated on breathing exercises, and practiced, with productive cough. Stood and ambulated in room with SBA and walker, short distance. All needs met up in chair. Education OT Patient Education: Correct positioning, Exercise program, Modified ADL techniques, Progress toward Goal/Update tx plan, Purpose of tx/functional activities, Reviewed precautions, Rehab process, Transfer techniques Teaching Recipient: Patient Teaching Methods: Demonstration, Discussion Response to Teaching: Verbalize Understanding, Return Demonstration OT Athletics Teacher Goals Athletics Teacher Goals Time Frame: Jan 15, 2021 Eating (QC): 6 Oral Hygiene (QC): 6 Toileting Hygiene (QC): 6 Shower/Bathe Self (QC): 4 Upper Body Dressing (QC): 5 Lower Body Dressing (QC): 6 On/Off Footwear (QC): 6 Additional Goals: 1-Demonstrate ADL Tasks, 2-Verbalize Understanding, 3- ImproveStrength/Osman 1=Demonstrate adherence to instructed precautions during ADL tasks. 2=Patient will verbalize/demonstrate understanding of assistive devices/modifications for ADL. 3=Patient will improve strength/tolerance for activity to enable patient to perform ADL's. OT Education/Plan Problem List/Assessment Assessment: Decreased Activ Tolerance, Impaired I ADL's, Impaired Self-Care Skills Discharge Recommendations Plan/Recommendations: Continue POC Therapy Discharge Recommendati: Post Acute OT Treatment Plan/Plan of Care Treatment,Training & Education: Yes Patient would benefit from OT for education, treatment and training to promote independence in ADL's, mobility, safety and/or upper extremity function for ADL's. Plan of Care: ADL Retraining, Functional Mobility, UE Funct Exercise/Act Treatment Duration: Jan 15, 2021 Frequency: 5 times per week Estimated Hrs Per Day: .25 hour per day Agreement: Yes Rehab Potential: Fair Time/GCodes Start Time: 14:00 Stop Time: 14:20 Total Time Billed (hr/min): 20 Billed Treatment Time 1, CHANDNI ZELAYA OT Jan 01, 2021 15:47
[2021-01-01 16:56] VITALS: BP 155/63
--- NOTE | 2021-01-01 18:00 | Progress Note - Hospitalist ---
Subjective HPI/CC On Admission Date Seen by Provider: Jan 01, 2021 Time Seen by Provider: 10:25 CC: COVID PNA with acute hypoxic respiratory failure with NATHANIEL HPI: This is a 65yoWF clinic patient of Dr Morton who has a h/o asthma without smoking history who [place] [facility] [place] with wheezing and dyspnea from Dr Morton office. He called me and after he gave me update I made the decision to have her report [place] [facility] with the intention of admitted her [place] [facility] [place] I have done in the past but she was found to be COVID + and unvaccinated and NATHANIEL creatinine 3.4 and severely dehydrated. Due to severity of illness I made the decision to move her to [facility] ICU. She appears to be very dehydrated and was given 2 liters of fluid NS in ER and dosed with 1 gram of IV Cefepime. Peraza catheter will be placed. I put in all meds and ICU orders. Decadron given in ER. Patient has a past medical history of Qmfggtg-Vrxly-Ntmgm disorder with bilateral leg braces worn, diabetes mellitus on insulin, hypothyroidism, chronic insomnia, GERD, neuropathy and hypertension, migraines. Subjective/Events-last exam She is still feeling weak and short of breath. She has been having some nausea and dry heaves. Focused Exam Lactate Level 12/29/20 20:20: Lactic Acid Level 1.23 Objective Exam Vital Signs Vital Signs Date Time Temp Pulse Resp B/P (MAP) Pulse Ox O2 Delivery O2 Flow Rate FiO2 01/01/21 16:56 36.1 64 20 155/63 (93) 96 Nasal Cannula 2.00 2.00 Capillary Refill : Less Than 3 Seconds General Appearance: No Apparent Distress, Obese Respiratory: No Respiratory Distress, Crackles Cardiovascular: Regular Rate, Rhythm, No Edema, No Murmur Gastrointestinal: Normal Bowel Sounds, Non Tender, Soft Extremity: Normal Inspection, Non Tender, No Pedal Edema Neurologic/Psychiatric: Alert, Oriented x3, Normal Mood/Affect, Motor Weakness Skin: Normal Color, Warm/Dry Results/Procedures Lab Laboratory Tests 01/01/21 04:10 Patient resulted labs reviewed. Imaging: Reviewed Imaging Report Assessment/Plan Assessment and Plan Assess & Plan/Chief Complaint Acute respiratory failure due to COVID-19 Decadron Remdesivir day 3/5 Supplemental oxygen as needed Right upper lobe pneumonia Procalcitonin elevated CXR with RUL consolidation Continue Cefepime and Azithromycin NATHANIEL Cr 1.16, improved Fluids stopped T2DM Glyburide Sliding scale insulin HTN Insomnia Neuropathy Hypothyroidism GERD Migraines Continue home meds Obesity Clinically significant, no acute management needs DVT prophylaxis: Lovenox Diagnosis/Problems Diagnosis/Problems (1) Acute respiratory failure due to COVID-19 Status: Acute (2) Acute kidney injury due to COVID-19 Status: Acute (3) Right upper lobe pneumonia Status: Acute (4) T2DM (type 2 diabetes mellitus) Status: Chronic (5) HTN (hypertension) Status: Chronic (6) Obesity Status: Chronic SABINE BOATENG MD Jan 01, 2021 18:00
[2021-01-01] MEDS: ENOXAPARIN 40 MG/0.4 ML (LOVENOX) SYR SQ SCH (18:37)
[2021-01-01] MEDS: ZOLPIDEM 5 MG (AMBIEN) TAB PO SCH (21:09)
[2021-01-01] MEDS: AMITRIPTYLINE 50 MG (ELAVIL) TAB PO SCH (21:09)
[2021-01-01] MEDS: PANTOPRAZOLE 20 MG TABLET (PROTONIX) PO SCH (21:10)
[2021-01-01] MEDS: ATORVASTATIN 10 MG TABLET PO SCH (21:10)
[2021-01-01 23:39] VITALS: BP 158/61
[2021-01-02] MEDS: RT-ALBUTEROL HFA 8.5 GM INHALER IH SCH ×4 (03:12→21:40)
[2021-01-02] MEDS: CEFEPIME INJECTION 1,000 MG in WATER (STERILE) FOR INJECTION 10 ML IV SCH ×3 (05:02→20:33)
[2021-01-02] MEDS: inSUlin ASPART (NovoLOG) 1 UNIT/0.01 ML (CHARGE PER UNIT) SC SCH ×4 (05:03→20:33)
[2021-01-02 07:11] LABS: BASOPHILS % (AUTO) 0 % (0-10); EOSINOPHILS % (AUTO) 0 % (0-10); HEMATOCRIT 26 % (35-52); LYMPHOCYTES # (AUTO) 0.8 10^3/uL (1.0-4.0); LYMPHOCYTES % (AUTO) 12 % (12-44); MEAN CORPUSCULAR HEMOGLOBIN 28 pg (25-34); MEAN CORPUSCULAR HGB CONC 31 g/dL (32-36); MEAN CORPUSCULAR VOLUME 90 fL (80-99); MEAN PLATELET VOLUME 8.7 fL (9.0-12.2); MONOCYTES # (AUTO) 0.4 10^3/uL (0.0-1.0); MONOCYTES % (AUTO) 7 % (0-12); NEUTROPHILS # (AUTO) 5.1 10^3/uL (1.8-7.8); NEUTROPHILS % (AUTO) 79 % (42-75); PLATELET COUNT 285 10^3/uL (130-400); WHITE BLOOD COUNT 6.4 10^3/uL (4.3-11.0)
[2021-01-02] MEDS: glyBURIDE 5 MG (MICRONASE) TAB PO SCH ×2 (07:25→17:35)
[2021-01-02 07:35] LABS: CALCIUM 8.1 MG/DL (8.5-10.1); CREATININE SERUM 0.98 MG/DL (0.60-1.30); POTASSIUM 4.7 MMOL/L (3.6-5.0)
[2021-01-02 07:47] VITALS: BP 152/67
[2021-01-02] MEDS: CYCLOBENZAPRINE 10 MG (FLEXERIL) TAB PO SCH ×2 (08:30→20:33)
[2021-01-02] MEDS: SENNA W/DOCUSATE (SENOKOT S) TABLET PO SCH ×3 (08:30→20:33)
[2021-01-02] MEDS: MAGNESIUM OXIDE (MAG-OX)400 MG TAB PO SCH (08:30)
[2021-01-02] MEDS: GABAPENTIN 300 MG (NEURONTIN) CAP PO SCH ×2 (08:30→20:33)
[2021-01-02] MEDS: MONTELUKAST 10 MG (SINGULAIR) TAB PO SCH (08:30)
[2021-01-02] MEDS: AZITHROMYCIN INJECTION 500 MG in NS (IVPB) 250 ML IV SCH (08:31)
[2021-01-02] MEDS: REMDESIVIR INJ 100 MG in NS (IVPB) 230 ML IV SCH (08:31)
--- NOTE | 2021-01-02 14:44 | Progress Note - Hospitalist ---
Subjective HPI/CC On Admission Date Seen by Provider: Jan 02, 2021 Time Seen by Provider: 08:30 CC: COVID PNA with acute hypoxic respiratory failure with NATHANIEL HPI: This is a 65yoWF clinic patient of Dr Morton who has a h/o asthma without smoking history who presented [place] [facility] with wheezing and dyspnea from Dr Morton office. He called me and after he gave me update I made the decision to have her report to [facility] with the intention of admitted her [place] [facility] as I have done in the past but she was found to be COVID + and unvaccinated and NATHANIEL creatinine 3.4 and severely dehydrated. Due to severity of illness I made the decision to move her to [facility] ICU. She appears to be very dehydrated and was given 2 liters of fluid NS in ER and dosed with 1 gram of IV Cefepime. Peraza catheter will be placed. I put in all meds and ICU orders. Decadron given in ER. Patient has a past medical history of Guuuakz-Ndsis-Piiup disorder with bilateral leg braces worn, diabetes mellitus on insulin, hypothyroidism, chronic insomnia, GERD, neuropathy and hypertension, migraines. Subjective/Events-last exam She is feeling better. Her nausea and vomiting have resolved. She has been eating and drinking. She has been up and moving. Objective Exam Vital Signs Vital Signs Date Time Temp Pulse Resp B/P (MAP) Pulse Ox O2 Delivery O2 Flow Rate FiO2 01/02/21 10:22 92 Nasal Cannula 2.00 01/02/21 07:47 35.5 71 20 152/67 (95) Capillary Refill : Less Than 3 Seconds General Appearance: No Apparent Distress, Obese Respiratory: Lungs Clear, Normal Breath Sounds, No Respiratory Distress Cardiovascular: Regular Rate, Rhythm, No Edema, No Murmur Gastrointestinal: Normal Bowel Sounds, Non Tender, Soft Extremity: Normal Inspection, Non Tender, No Pedal Edema Neurologic/Psychiatric: Alert, Oriented x3, Normal Mood/Affect Skin: Normal Color, Warm/Dry Results/Procedures Lab Laboratory Tests 01/02/21 07:00 Patient resulted labs reviewed. Imaging: Reviewed Imaging Report Assessment/Plan Assessment and Plan Assess & Plan/Chief Complaint Acute respiratory failure due to COVID-19 Decadron Remdesivir day 4/5 Supplemental oxygen as needed Home oxygen evaluation Possibly home with home health tomorrow vs Monday Right upper lobe pneumonia Procalcitonin elevated CXR with RUL consolidation Continue Cefepime and Azithromycin NATHANIEL Creatinine improved Fluids stopped T2DM Glyburide Sliding scale insulin HTN Insomnia Neuropathy Hypothyroidism GERD Migraines Continue home meds Obesity Clinically significant, no acute management needs DVT prophylaxis: Lovenox Diagnosis/Problems Diagnosis/Problems (1) Acute respiratory failure due to COVID-19 Status: Acute (2) Acute kidney injury due to COVID-19 Status: Acute (3) Right upper lobe pneumonia Status: Acute (4) T2DM (type 2 diabetes mellitus) Status: Chronic (5) HTN (hypertension) Status: Chronic (6) Obesity Status: Chronic SABINE BOATENG MD Jan 02, 2021 14:44
[2021-01-02 17:00] VITALS: BP 141/76
[2021-01-02] MEDS: ENOXAPARIN 40 MG/0.4 ML (LOVENOX) SYR SQ SCH (17:35)
[2021-01-02] MEDS: CYCLOBENZAPRINE 10 MG (FLEXERIL) TAB PO PRN (17:36)
[2021-01-02] MEDS: ATORVASTATIN 10 MG TABLET PO SCH (20:33)
[2021-01-02] MEDS: ZOLPIDEM 5 MG (AMBIEN) TAB PO SCH (20:33)
[2021-01-02] MEDS: AMITRIPTYLINE 50 MG (ELAVIL) TAB PO SCH (20:33)
[2021-01-02] MEDS: PANTOPRAZOLE 20 MG TABLET (PROTONIX) PO SCH (20:33)
[2021-01-02 23:22] VITALS: BP 143/64
[2021-01-03] MEDS: RT-ALBUTEROL HFA 8.5 GM INHALER IH SCH ×3 (04:14→14:19)
[2021-01-03] MEDS: CEFEPIME INJECTION 1,000 MG in WATER (STERILE) FOR INJECTION 10 ML IV SCH (04:18)
[2021-01-03] MEDS: inSUlin ASPART (NovoLOG) 1 UNIT/0.01 ML (CHARGE PER UNIT) SC SCH ×3 (06:08→17:49)
[2021-01-03] MEDS: glyBURIDE 5 MG (MICRONASE) TAB PO SCH ×2 (06:08→17:49)
[2021-01-03 07:25] VITALS: BP 151/67
[2021-01-03] MEDS: MONTELUKAST 10 MG (SINGULAIR) TAB PO SCH (10:05)
[2021-01-03] MEDS: REMDESIVIR INJ 100 MG in NS (IVPB) 230 ML IV SCH (10:05)
[2021-01-03] MEDS: GABAPENTIN 300 MG (NEURONTIN) CAP PO SCH (10:05)
[2021-01-03] MEDS: MAGNESIUM OXIDE (MAG-OX)400 MG TAB PO SCH (10:06)
[2021-01-03] MEDS: CYCLOBENZAPRINE 10 MG (FLEXERIL) TAB PO SCH (10:06)
[2021-01-03] MEDS: SENNA W/DOCUSATE (SENOKOT S) TABLET PO SCH (10:07)
[2021-01-03] MEDS: AZITHROMYCIN INJECTION 500 MG in NS (IVPB) 250 ML IV SCH (10:08)
[2021-01-03] MEDS ORDERED: CEFD300C3 PO (14:54)
[2021-01-03] MEDS ORDERED: CEFDINIR 300 MG (OMNICEF) CAP PO ONE (15:00)
[2021-01-03 15:30] VITALS: BP 127/60
[2021-01-03] MEDS: CYCLOBENZAPRINE 10 MG (FLEXERIL) TAB PO PRN (16:13)
[2021-01-03] MEDS: ENOXAPARIN 40 MG/0.4 ML (LOVENOX) SYR SQ SCH (17:49)
[2021-01-03 18:43] VITALS: BP 127/60
== END 2021-01-03 18:47 | disposition home or self-care (01) | DRG 177 ==
LOC: ICU 19:50 → 4TH 12-30 15:25
PROVIDERS: ADMIT Internal Medicine; ATTEND Internal Medicine
PROC: XW033E5 Introduction of Remdesivir Anti-infective into Peripheral Vein, Percutaneous Approach, New Technology Group 5 (ICD-10-PCS; principal; 2020-12-29)
PROC: 5A09357 Assistance with Respiratory Ventilation, Less than 24 Consecutive Hours, Continuous Positive Airway Pressure (ICD-10-PCS; 2021-01-01)
DX: U07.1 COVID-19 (principal); J96.01 Acute respiratory failure with hypoxia; J12.82 Pneumonia due to coronavirus disease 2019; N17.0 Acute kidney failure with tubular necrosis; J15.9 Unspecified bacterial pneumonia; E86.0 Dehydration; Z79.4 Long term (current) use of insulin; G47.00 Insomnia, unspecified; K21.9 Gastro-esophageal reflux disease without esophagitis; E03.9 Hypothyroidism, unspecified; I10 Essential (primary) hypertension; G43.909 Migraine, unspecified, not intractable, without status migrainosus; E11.40 Type 2 diabetes mellitus with diabetic neuropathy, unspecified; G60.0 Hereditary motor and sensory neuropathy; J45.909 Unspecified asthma, uncomplicated; E66.9 Obesity, unspecified; E87.5 Hyperkalemia; Z68.35 Body mass index [BMI] 35.0-35.9, adult
CPT/HCPCS: 36415; 71045; 80048; 80053; 82805; 82947; 83605; 83615; 83735; 83880; 84100; 84145; 84484; 85007; 85025; 85027; 85379; 85384; 86141; 87081; 93005; 94640; 94660; 94664; 94760; 94761

== ENCOUNTER 2021-09-23 08:20 | Emergency (ER) | payer MEDICARE ==
[~2021-09-23] VITALS: Ht 165 cm; Wt 93.0 kg
[~2021-09-23 08:20] MED LIST changes: +ALBU2.5V4 NEB; +AMIT100T2 PO; +AMIT25TA9 PO; +ATOR10TA66 PO; +CANA100T PO; +CEFD300C3 PO; +CYCL10TA25 PO; +FLUT9.9S NSEACH; +FURO40TA4 PO; +GABA300C PO; +GLBR5T PO; +HYDR-3820 PO; +INSU100I29 SC; +LISI20TA26 PO; +LORA10TA7 PO; +MAGN400T39 PO; +MELO15TA39 PO; +METF-399 PO; +MONT-40 PO; +OMEP20TA7 PO; +ZOLP5TAB7 PO
--- NOTE | 2021-09-23 08:32 | ED General ---
General Chief Complaint: General Problems/Pain Stated Complaint: ABNORMAL LABS Source of Information: Patient Exam Limitations: No Limitations History of Present Illness Date Seen by Provider: Sep 23, 2021 Time Seen by Provider: 08:25 Initial Comments 66yoF with PMH of Keatrgc-Ysslk-Nmeyr disorder with bilateral leg braces, IDDM, hypothyroidism, chronic insomnia, GERD, neuropathy, HTN, and migraines coming in due to elevated potassium. She had routine labs done a couple days ago which were sent she believes to [facility]. She was called today stating her potassium was elevated greater than 8 and was told to go to the ER. She says she continues to take her Lasix and has not missed any doses. She continues to make urine. With her leg braces and her general weakness with her legs, she has had frequent falls recently with the most recent being yesterday. She has never hit her head or passed out. She does not take any blood thinners. The only pain she has is in her left ankle laterally where she feels like she twisted it. She is otherwise denying any other acute complaints. She is otherwise denying any chest pain, shortness of breath, abdominal pain, nausea, vomiting, diarrhea, fever, chills, focal weakness or numbness, vision changes, or any other concerns. Allergies and Home Medications Allergies Coded Allergies: No Known Drug Allergies (Unverified , 01/24/20) Patient Home Medication List Home Medication List Reviewed: Yes Albuterol Sulfate (Albuterol Sulfate) 2.5 Mg/3 Ml Vial.neb, 3 ML NEB TID PRN for SHORTNESS OF BREATH, (Reported) Entered as Reported by: AURY COTO on 12/30/201111 Amitriptyline HCl (Amitriptyline HCl) 25 Mg Tablet, 25 MG PO DAILY, (Reported) Entered as Reported by: AURY COTO on 12/30/20 111 Amitriptyline HCl (Amitriptyline HCl) 100 Mg Tablet, 100 MG PO HS, (Reported) Entered as Reported by: AURY COTO on 12/30/201111 Atorvastatin Calcium (Atorvastatin Calcium) 10 Mg Tablet, 10 MG PO HS, (Reported) Entered as Reported by: AURY COTO on 12/30/201111 Canagliflozin (Invokana) 100 Mg Tablet, 100 MG PO DAILY, (Reported) Entered as Reported by: AURY COTO on 12/30/20 111 Cefdinir (Cefdinir) 300 Mg Capsule, 300 MG PO BID Prescribed by: SABINE BOATENG on 01/03/21 1454 Cyclobenzaprine HCl (Cyclobenzaprine HCl) 10 Mg Tablet, 10 MG PO BID, (Reported) Entered as Reported by: AURY COTO on 12/30/20 111 Cyclobenzaprine HCl (Cyclobenzaprine HCl) 10 Mg Tablet, 10 MG PO DAILY PRN for MUSCLE SPASMS, (Reported) Entered as Reported by: AURY COTO on 12/30/20 1148 Fluticasone Propionate (Flonase Allergy Relief) 9.9 Ml [place].susp, 1-2 SPRAY NSEACH BID PRN for CONGESTION, (Reported) Entered as Reported by: AURY COTO on 12/30/20 111 Furosemide (Furosemide) 40 Mg Tablet, 40 MG PO DAILY PRN for FLUID RETENTION, (Reported) Entered as Reported by: AURY COTO on 12/30/20 111 Gabapentin (Neurontin) 300 Mg Capsule, 300 MG PO BID, (Reported) Entered as Reported by: AURY COTO on 12/30/20 111 Glyburide (Glyburide) 5 Mg Tablet, 10 MG PO BID, (Reported) Entered as Reported by: AURY COTO on 12/30/20 111 Hydrocodone/Acetaminophen (Hydrocodone-Acetamin 10-325 mg) 1 Each Tablet, 1 EA PO Q6H PRN for PAIN-MODERATE (5-7), (Reported) Entered as Reported by: AURY COTO on 12/30/20 111 Insulin Detemir (Levemir Flextouch) 100 Unit/1 Ml Insuln.pen, 25 UNITS SC HS, (Reported) Entered as Reported by: AURY COTO on 12/30/20 111 Lisinopril (Lisinopril) 20 Mg Tablet, 20 MG PO HS, (Reported) Entered as Reported by: AURY COTO on 12/30/20 111 Loratadine (Loratadine) 10 Mg Tablet, 10 MG PO DAILY PRN for ALLERGY SYMPTOMS, (Reported) Entered as Reported by: AURY COTO on 12/30/20 111 Magnesium Oxide (Magnesium) 400 Mg Tablet, 400 MG PO DAILY, (Reported) Entered as Reported by: AURY COTO on 12/30/201111 Meloxicam (Meloxicam) 15 Mg Tablet, 15 MG PO HS, (Reported) Entered as Reported by: AURY COTO on 12/30/201111 Metformin HCl (Metformin HCl) 1,000 Mg Tablet, 1,000 MG PO BID, (Reported) Entered as Reported by: AURY COTO on 12/30/201111 Montelukast Sodium (Montelukast Sodium) 10 Mg Tablet, 10 MG PO DAILY, (Reported) Entered as Reported by: AURY COTO on 12/30/201111 Omeprazole (Omeprazole) 20 Mg Tablet.dr, 20 MG PO HS, (Reported) Entered as Reported by: AURY COTO on 12/30/201111 Zolpidem Tartrate (Zolpidem Tartrate) 5 Mg Tablet, 5 MG PO HS, (Reported) Entered as Reported by: AURY COTO on 12/30/201111 Review of Systems Review of Systems Constitutional: No chills, No fever EENTM: No blurred vision Respiratory: No cough, No short of breath Cardiovascular: No chest pain Gastrointestinal: No abdominal pain Genitourinary: no symptoms reported Musculoskeletal: no symptoms reported Skin: no symptoms reported Psychiatric/Neurological: No Symptoms Reported Hematologic/Lymphatic: No Symptoms Reported Immunological/Allergic: no symptoms reported All Other Systems Reviewed Negative Unless Noted: Yes Past Kkrmudd-Hykari-Zngblp Hx Patient Social History Tobacco Use?: No Immunizations Up To Date Tetanus Booster (TDap): Unknown PED Vaccines UTD: Yes Seasonal Allergies Seasonal Allergies: Yes Past Medical History Surgeries: Yes Gallbladder, Orthopedic, Tubal Ligation Respiratory: Yes Asthma Cardiac: Yes Hypertension Neurological: No Headaches /Migraines 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 oz. kg; 36.24 BMI Method: General Appearance: No Apparent Distress, WD/WN Eyes: Bilateral Eye Normal Inspection HEENT: PERRL/EOMI, Normal ENT Inspection, Pharynx Normal Neck: Full Range of Motion, Normal Inspection, Non Tender, Supple Respiratory: Chest Non Tender, Lungs Clear, Normal Breath Sounds, No Accessory Muscle Use, No Respiratory Distress Cardiovascular: Regular Rate, Rhythm, No Edema, Normal Peripheral Pulses Gastrointestinal: Normal Bowel Sounds, Non Tender, Soft Back: Normal Inspection Extremity: Normal Capillary Refill, Non Tender, No Calf Tenderness, Other (Pain along the lateral malleolus of the left leg, bilateral leg braces on with some trace edema) Neurologic/Psychiatric: Alert, No Motor/Sensory Deficits, Normal Mood/Affect Skin: Normal Color, Warm/Dry Lymphatic: No Adenopathy Progress/Results/Core Measures Suspected Sepsis SIRS Temperature: Pulse: Respiratory Rate: Laboratory Tests 09/23/21 08:30: White Blood Count 15.7H Blood Pressure / Mean: Laboratory Tests 09/23/21 08:30: Creatinine 7.61H, INR Comment 1.0, Platelet Count 649H, Total Bilirubin 0.3 Results/Orders Lab Results Laboratory Tests Test 09/23/21 08:30 09/23/21 09:18 Range/Units White Blood Count 15.7 H 4.3-11.0 10^3/uL Red Blood Count 3.21 L 3.80-5.11 10^6/uL Hemoglobin 9.2 L 11.5-16.0 g/dL Hematocrit 29 L 35-52 % Mean Corpuscular Volume 91 80-99 fL Mean Corpuscular Hemoglobin 29 25-34 pg Mean Corpuscular Hemoglobin Concent 32 32-36 g/dL Red Cell Distribution Width 13.5 10.0-14.5 % Platelet Count 649 H 130-400 10^3/uL Mean Platelet Volume 8.3 L 9.0-12.2 fL Immature Granulocyte % (Auto) 1 % Neutrophils (%) (Auto) 79 H 42-75 % Lymphocytes (%) (Auto) 12 12-44 % Monocytes (%) (Auto) 5 0-12 % Eosinophils (%) (Auto) 2 0-10 % Basophils (%) (Auto) 0 0-10 % Neutrophils # (Auto) 12.4 H 1.8-7.8 10^3/uL Lymphocytes # (Auto) 1.8 1.0-4.0 10^3/uL Monocytes # (Auto) 0.9 0.0-1.0 10^3/uL Eosinophils # (Auto) 0.4 H 0.0-0.3 10^3/uL Basophils # (Auto) 0.1 0.0-0.1 10^3/uL Immature Granulocyte # (Auto) 0.2 H 0.0-0.1 10^3/uL Neutrophils % (Manual) 78 % Lymphocytes % (Manual) 17 % Monocytes % (Manual) 2 % Eosinophils % (Manual) 1 % Basophils % (Manual) 2 % Blood Morphology Comment NORMAL Prothrombin Time 13.8 12.2-14.7 SEC INR Comment 1.0 0.8-1.4 Sodium Level 135 135-145 MMOL/L Potassium Level 6.7 *H 3.6-5.0 MMOL/L Chloride Level 102 98-107 MMOL/L Carbon Dioxide Level 16 L 21-32 MMOL/L Anion Gap 17 H 5-14 MMOL/L Blood Urea Nitrogen 89 H 7-18 MG/DL Creatinine 7.61 H 0.60-1.30 MG/DL Estimat Glomerular Filtration Rate 5 BUN/Creatinine Ratio 12 Glucose Level 253 H 70-105 MG/DL Calcium Level 8.7 8.5-10.1 MG/DL Corrected Calcium 8.7 8.5-10.1 MG/DL Magnesium Level 2.0 1.6-2.4 MG/DL Total Bilirubin 0.3 0.1-1.0 MG/DL Aspartate Amino Transf (AST/SGOT) 9 5-34 U/L Alanine Aminotransferase (ALT/SGPT) 11 0-55 U/L Alkaline Phosphatase 96 40-136 U/L Total Protein 6.9 6.4-8.2 GM/DL Albumin 4.0 3.2-4.5 GM/DL Urine Color YELLOW Urine Clarity CLEAR Urine pH 5.5 5-9 Urine Specific [place] 1.020 1.016-1.022 Urine Protein 1+ H NEGATIVE Urine Glucose (UA) 3+ H NEGATIVE Urine Ketones NEGATIVE NEGATIVE Urine Nitrite POSITIVE H NEGATIVE Urine Bilirubin NEGATIVE NEGATIVE Urine Urobilinogen 0.2 < = 1.0 MG/DL Urine Leukocyte Esterase 1+ H NEGATIVE Urine RBC (Auto) 1+ H NEGATIVE Urine RBC 0-2 /HPF Urine WBC 25-50 H /HPF Urine Squamous Epithelial Cells 2-5 /HPF Urine Crystals NONE /LPF Urine Bacteria LARGE H /HPF Urine Casts NONE /LPF Urine Mucus NEGATIVE /LPF Urine Culture Indicated YES My Orders Orders - REBEKAH VALLE MD Cbc With Automated Diff (09/23/21 08:37) Comprehensive Metabolic Panel (09/23/21 08:37) Magnesium (09/23/21 08:37) Protime With Inr (09/23/21 08:37) Ua Culture If Indicated (09/23/21 08:37) Ekg Tracing (09/23/21 08:37) Ns Iv 1000 Ml (Sodium Chloride 0.9%) (09/23/21 08:43) Ankle, Left, 3 Views (09/23/21 08:43) Manual Differential (09/23/21 08:30) Ct Head Wo (09/23/21 09:01) Insulin (Regular) Human (Novolin R (Per (09/23/21 09:30) D50w (Emergency) Syringe (Dextrose 50% 5 (09/23/21 09:30) Sodium Polystyrene Powder (Kayexalate P (09/23/21 09:30) Calc Gluc 1 Gm/100 Ml Ivpb (Calcium Gluc (09/23/21 09:31) Urine Culture (09/23/21 09:18) Basic Metabolic Panel (09/23/21 10:36) Medications Given in ED Current Medications Medications Dose Ordered Sig/John Route Start Time Stop Time Status Last Admin Dose Admin Dextrose 50 ml ONCE ONCE IV 09/23/21 09:30 09/23/21 09:31 DC 09/23/21 10:01 50 ML Insulin Human Regular 10 unit ONCE ONCE IV 09/23/21 09:30 09/23/21 09:31 DC 09/23/21 10:01 10 UNIT Sodium Polystyrene Sulfonate 15 gm ONCE ONCE PO 09/23/21 09:30 09/23/21 09:31 DC 09/23/21 10:17 15 GM Vital Signs/I&O 09/23/21 08:24 Temp 37.2 Pulse 99 Resp 20 B/P (MAP) 118/73 (88) O2 Delivery Room Air Capillary Refill : Progress Note : Progress Note 66-year-old female with above history coming in due to hyperkalemia. ABCs were intact and vital stable on presentation. Physical exam with no acute abnormalities. Potassium here 6.7 and creatinine greater than 7 from her prior creatinine of 0.9 about a year ago. EKG without significant changes, QRS 119. Given IV calcium, insulin, glucose, 1 L of normal saline, and sodium polystyrene p.o. I discussed the case with the patient saying we do not have a family day care provider. If she were to require dialysis. I contacted [facility] and the patient will be transferred to them for further evaluation and management. She was able to urinate fully and does not have any obstruction. ECG Initial ECG Impression Date: Sep 23, 2021 Initial ECG Impression Time: 08:31 Initial ECG Rate: 98 Initial ECG Rhythm: Normal Sinus Comment QRS of 119 but otherwise appears similar morphology to a right bundle branch block, no significant ST changes or T wave abnormalities Diagnostic Imaging Diagonstic Imaging: Xray (left ankle), CT (head) Comments [facility] [place] NAME: ELIZA FRANCO [facility] REC#: [id number] PT STATUS: REG ER : 1955 PHYSICIAN: REBEKAH VALLE MD ADMIT DATE: 09/23/21/ER Draft Date of Exam:09/23/21 CT HEAD WO PROCEDURE: CT head without contrast. TECHNIQUE: Multiple contiguous axial images were obtained through the brain without the use of intravenous contrast. Auto Exposure Controls were utilized during the CT exam to meet ALARA standards for radiation dose reduction. INDICATION: 66-year-old female with generalized weakness, multiple falls. COMPARISONS: None FINDINGS: Midline structures are not displaced. Lateral, 3rd, and 4th ventricles are normal in size, shape and anatomic position. There is no mass, mass effect, hydrocephalus or hemorrhage. Blair-white differentiation is normal. There is no sulcal effacement. There are no abnormal extra-axial fluid collections or hemorrhage. Basilar cisterns appear normal. Sinuses, orbits and mastoid air cells are unremarkable. Bone windows show no calvarial changes. IMPRESSION: Mild age-appropriate senescent changes, otherwise unremarkable nonenhanced CT head. Dictated on workstation # [id number] Dict: 09/23/2127 Trans: 09/23/2133 [facility] [id number] Interpreted by: OMAR MOTTA MD Electronically signed by: [facility] [place] NAME: ELIZA FRANCO [facility] REC#: [id number] PT STATUS: REG ER : 1955 PHYSICIAN: REBEKAH VALLE MD ADMIT DATE: 09/23/21/ER Draft Date of Exam:09/23/21 ANKLE, LEFT, 3 VIEWS CLINICAL INDICATION: Patient has fallen 6 times since August. Patient uses a cane and walker. Patient has left foot pain from fall yesterday. EXAM: X-ray of the left foot, 3 views. COMPARISON: None. FINDINGS: There is no acute fracture or dislocation. Ankle mortise and syndesmotic joints unremarkable. There is chronic calcifications and spurring of the medial lateral malleolar regions inferiorly. There is hypertrophic calcaneal spurs at the plantar and Achilles attachment. There is spurring of the dorsal midfoot. IMPRESSION: 1: There is no acute fracture or dislocation. 2: There are chronic bony changes which may be degenerative or posttraumatic involving the medial and lateral malleoli regions. 3: There are hypertrophic calcaneal spurs. Dictated on workstation # [id number] Dict: 09/23/21918 Trans: 09/23/2123 [id number] Interpreted by: PAMELA FLORIAN MD Electronically signed by: Departure Impression Primary Impression: NATHANIEL (acute kidney injury) Additional Impression: Hyperkalemia Disposition: XF SHT-TRM HOSP Condition: Stable Admissions Decision to Admit/Date: Sep 23, 2021 Time/Decision to Admit Time: 09:35 Transfer Transfer Reason: Exceeds level of care Time Spoke to Accepting Phy: 09:40 Transfer Progress Notes Antonio Taylor accepted via Dr. Avendano Transfer Facility: [facility] Method of Transfer: EMS Departure-Patient Inst. Referrals: SAMEERA COSBY MD (PCP/Family) Primary Care Physician REBEKAH VALLE MD Sep 23, 2021 08:31
[2021-09-23] MEDS ORDERED: NS IV 1000 ML 1,000 ML IV STA (08:43)
[2021-09-23 08:44] LABS: BASOPHILS # (AUTO) 0.1 10^3/uL (0.0-0.1); BASOPHILS % (AUTO) 0 % (0-10); EOSINOPHILS # (AUTO) 0.4 10^3/uL (0.0-0.3); EOSINOPHILS % (AUTO) 2 % (0-10); HEMATOCRIT 29 % (35-52); HEMOGLOBIN 9.2 g/dL (11.5-16.0); LYMPHOCYTES # (AUTO) 1.8 10^3/uL (1.0-4.0); LYMPHOCYTES % (AUTO) 12 % (12-44); MEAN CORPUSCULAR HEMOGLOBIN 29 pg (25-34); MEAN CORPUSCULAR HGB CONC 32 g/dL (32-36); MEAN CORPUSCULAR VOLUME 91 fL (80-99); MEAN PLATELET VOLUME 8.3 fL (9.0-12.2); MONOCYTES # (AUTO) 0.9 10^3/uL (0.0-1.0); MONOCYTES % (AUTO) 5 % (0-12); NEUTROPHILS # (AUTO) 12.4 10^3/uL (1.8-7.8); NEUTROPHILS % (AUTO) 79 % (42-75); PLATELET COUNT 649 10^3/uL (130-400); WHITE BLOOD COUNT 15.7 10^3/uL (4.3-11.0)
[2021-09-23 08:50] LABS: PROTHROMBIN TIME PATIENT 13.8 SEC (12.2-14.7)
[2021-09-23 09:01] LABS: BASOPHILS % (MANUAL) 2 %; EOSINOPHILS % (MANUAL) 1 %; LYMPHOCYTES % (MANUAL) 17 %; MONOCYTES % (MANUAL) 2 %; NEUTROPHILS % (MANUAL) 78 %; RBC MORPH NORMAL
[2021-09-23 09:06] LABS: CALCIUM 8.7 MG/DL (8.5-10.1)
[2021-09-23 09:07] LABS: TOTAL PROTEIN 6.9 GM/DL (6.4-8.2)
[2021-09-23 09:09] LABS: BILIRUBIN,TOTAL 0.3 MG/DL (0.1-1.0)
[2021-09-23 09:10] LABS: CREATININE SERUM 7.61 MG/DL (0.60-1.30)
[2021-09-23 09:18] LABS: POTASSIUM 6.7 MMOL/L (3.6-5.0)
--- NOTE | 2021-09-23 09:24 | Diagnostic Imaging Report ---
CLINICAL INDICATION: Patient has fallen 6 times since August. Patient uses a cane and walker. Patient has left foot pain from fall yesterday. EXAM: X-ray of the left foot, 3 views. COMPARISON: None. FINDINGS: There is no acute fracture or dislocation. Ankle mortise and syndesmotic joints unremarkable. There is chronic calcifications and spurring of the medial lateral malleolar regions inferiorly. There is hypertrophic calcaneal spurs at the plantar and Achilles attachment. There is spurring of the dorsal midfoot. IMPRESSION: 1: There is no acute fracture or dislocation. 2: There are chronic bony changes which may be degenerative or posttraumatic involving the medial and lateral malleoli regions. 3: There are hypertrophic calcaneal spurs. Dictated by: Dictated on workstation # [id number]
[2021-09-23 09:27] LABS: BILIRUBIN,URINE NEGATIVE (NEGATIVE); CLARITY,URINE CLEAR; COLOR,URINE YELLOW; GLUCOSE, URINE (UA) 3+ (NEGATIVE); KETONES,URINE NEGATIVE (NEGATIVE); LEUKOCYTE ESTERASE ,URINE 1+ (NEGATIVE); NITRITE,URINE POSITIVE (NEGATIVE); PH,URINE 5.5 (5-9); PROTEIN,URINE 1+ (NEGATIVE)
[2021-09-23] MEDS ORDERED: DEXTROSE 50% 50 ML (IMS) SYR IV ONE (09:30)
[2021-09-23] MEDS ORDERED: inSUlin (REGULAR) HUMAN 1 UNIT/0.01 ML (CHARGE PER UNIT) IV ONE (09:30)
[2021-09-23] MEDS ORDERED: SODIUM POLYSTYRENE POWDER 15 GM BOTTLE PO ONE (09:30)
[2021-09-23] MEDS ORDERED: CALC GLUC 1 GM/100 ML IVPB 100 ML IV STA (09:31)
--- NOTE | 2021-09-23 09:34 | Diagnostic Imaging Report ---
PROCEDURE: CT head without contrast. TECHNIQUE: Multiple contiguous axial images were obtained through the brain without the use of intravenous contrast. Auto Exposure Controls were utilized during the CT exam to meet ALARA standards for radiation dose reduction. INDICATION: 66-year-old female with generalized weakness, multiple falls. COMPARISONS: None FINDINGS: Midline structures are not displaced. Lateral, 3rd, and 4th ventricles are normal in size, shape and anatomic position. There is no mass, mass effect, hydrocephalus or hemorrhage. Blair-white differentiation is normal. There is no sulcal effacement. There are no abnormal extra-axial fluid collections or hemorrhage. Basilar cisterns appear normal. Sinuses, orbits and mastoid air cells are unremarkable. Bone windows show no calvarial changes. IMPRESSION: Mild age-appropriate senescent changes, otherwise unremarkable nonenhanced CT head. Dictated by: Dictated on workstation # [id number]
[2021-09-23 09:36] LABS: BACTERIA,URINE LARGE /HPF; RBC,URINE 0-2 /HPF; WBC,URINE 25-50 /HPF
[2021-09-23 11:52] VITALS: BP 113/55
== END 2021-09-23 11:52 | disposition short-term general hospital (02) ==
LOC: EDUNIT# 08:20 → ER 08:22
DX: N17.9 Acute kidney failure, unspecified (principal); E87.5 Hyperkalemia; E11.40 Type 2 diabetes mellitus with diabetic neuropathy, unspecified; G43.909 Migraine, unspecified, not intractable, without status migrainosus; Z79.4 Long term (current) use of insulin
CPT/HCPCS: 36415; 70450; 73610; 80053; 81000; 83735; 85007; 85027; 85610; 87077; 87088; 87186; 93005